=== PATIENT | female | born 1935 | race Caucasian/White ===

== ENCOUNTER → 2018-01-12 09:07 | Outpatient (CLI) | payer OTHER, SELFPAY ==
[2018-01-12 10:21] LABS: Alanine Aminotransferase 26 IU/L (9-52); Albumin 4.4 g/dL (3.5-5.0); Albumin Globulin Ratio 1.5 (1.0-2.8); Alkaline Phosphatase 52 U/L (38-126); Aspartate Aminotransferase 25 IU/L (14-36); Bilirubin Total 0.7 mg/dL (0.2-1.3); Blood Urea Nitrogen 12 mg/dL (7-17); Calcium 9.7 mg/dL (8.4-10.2); Carbon Dioxide 30 mmol/L (22-32); Chloride 104 mmol/L (98-107); Cholesterol 215 mg/dL (140-199); Estimated Glomerular Filt Rate > 60.0 mL/min (>60); Glucose 99 mg/dL (80-110); HDL Cholesterol 80 mg/dL (40-60); HEMOLYSIS < 15 (0-50); LDL Cholesterol Calculated 109 mg/dL (<100); Potassium 4.3 mmol/L (3.4-5.1); Sodium 143 mmol/L (137-145); Total Protein 7.4 g/dL (6.3-8.2); Triglycerides 132 mg/dL (35-150)
== END ==
PROVIDERS: PCP Internal Medicine; Visit Provider Internal Medicine
DX: Z00.00 Encounter for general adult medical examination without abnormal findings (principal); I10 Essential (primary) hypertension; E78.5 Hyperlipidemia, unspecified; M85.851 Other specified disorders of bone density and structure, right thigh
CPT/HCPCS: 36415; 77080; 80053; 80061

== ENCOUNTER → 2018-06-13 15:21 | Outpatient (CLI) | payer OTHER, SELFPAY ==
--- NOTE | 2018-06-13 | DI.RAD.S_ITS ---
PROCEDURE: XR KNEE LT 1TO2V INDICATIONS: PAIN IN LT KNEE TECHNIQUE: 2 views of the knee were acquired. COMPARISON: None. FINDINGS: Bones: No fractures or dislocations. No suspicious bony lesions. There is mild to moderate lateral compartment joint space narrowing, and chondrocalcinosis is present at both the medial and lateral compartments (more prominent laterally). Soft tissues: No joint effusion. No suspicious soft tissue calcifications. 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 Dictated by: Anthony Velez M.D. on 06/13/2018 at 15:52 Approved by: Anthony Velez M.D. on 06/13/2018 at 15:52
== END ==
PROVIDERS: PCP Internal Medicine; Visit Provider Physician Assistant
DX: M25.562 Pain in left knee (principal); M11.262 Other chondrocalcinosis, left knee; M17.12 Unilateral primary osteoarthritis, left knee
CPT/HCPCS: 73560

== ENCOUNTER → 2019-06-28 18:30 | Outpatient (ROUT) | payer OTHER, SELFPAY ==
[2019-06-28 19:04] LABS: Alanine Aminotransferase 18 IU/L (<35); Aspartate Aminotransferase 26 IU/L (14-36); BUN Creatinine Ratio 17.5 (6-22); Blood Urea Nitrogen 14 mg/dL (7-17); Carbon Dioxide 30 mmol/L (22-32); Chloride 103 mmol/L (98-107); Cholesterol 216 mg/dL (140-199); Estimated Glomerular Filt Rate > 60.0 mL/min (>60); Glucose 98 mg/dL (80-110); HDL Cholesterol 72 mg/dL (40-60); HEMOLYSIS < 15 (0-50); LDL Cholesterol Calculated 118 mg/dL (<100); Sodium 142 mmol/L (137-145); Triglycerides 132 mg/dL (35-150)
== END ==
PROVIDERS: PCP Internal Medicine; Visit Provider Internal Medicine
DX: I10 Essential (primary) hypertension (principal); E78.5 Hyperlipidemia, unspecified
CPT/HCPCS: 80048; 80061; 84450; 84460

== ENCOUNTER 2019-07-21 10:02 | Emergency (ER) | payer MEDICARE, SELFPAY ==
[2019-07-21 10:05] VITALS: BP 148/69; PULSE 71; RESP 16; TEMP 36.6; O2SAT 100; BMI 22.8
--- NOTE | 2019-07-21 10:42 | DI.RAD.S_ITS ---
PROCEDURE: XR KNEE LT 1TO2V INDICATIONS: left knee swelling and pain TECHNIQUE: 2 views of the knee were acquired. COMPARISON: [facility], , XR KNEE LT 1TO2V, 06/13/2018, 15:26. FINDINGS: Bones: No fractures or dislocations. No suspicious bony lesions. Chondrocalcinosis. Mild medial compartment joint space loss. Soft tissues: Small joint effusion. No suspicious soft tissue calcifications. IMPRESSION: CPPD arthropathy. No evidence acute bony abnormality of the left knee. If clinical suspicion and/or symptoms persist, further assessment with repeat plain films, or advanced imaging (e.g., CT, MRI, or bone scan) may be helpful for further assessment. Dictated by: Blaise Rouse M.D. on 07/21/2019 at 11:23 Approved by: Blaise Rouse M.D. on 07/21/2019 at 11:24
--- NOTE | 2019-07-21 11:34 | ED_ITS ---
HPI - Extremity Injury (Lower) <ELVIA Brown - Last Filed: 07/21/19 17:28> General Chief Complaint: Extremity Injury, Lower Stated Complaint: L Knee Pain Time Seen by Provider: 07/21/19 11:06 Source: patient and EMS Mode of arrival: EMS Limitations: no limitations History of Present Illness HPI Narrative: The patient is an 84-year-old female nonsmoker with history of left meniscus injury who presents with a chief complaint of left knee pain. She states that she had an MRI over the summer, and found a meniscal tear. She states she has a history of chronic left knee pain. She had a period of slight decreased activity due to recent illness, and states that when she started moving around again, her left knee her worse than usual. She states that it hurts on the outside of her left knee only with motion or ambulation she denies any bruising, falls or injury, erythema. She denies any recent fevers. Related Data Previous Rx's Medication Instructions Recorded lidocaine 1 patch TOP DAILY PRN #15 each 07/21/19 prednisone 40 mg PO DAILY #10 tab 07/21/19 tramadol 50 mg PO Q6H PRN #7 tab 07/21/19 Allergies Allergy/AdvReac Type Severity Reaction Status Date / Time Sulfa (Sulfonamide Allergy Unknown Verified 07/21/19 12:04 Antibiotics) Review of Systems <ELVIA Brown - Last Filed: 07/21/19 17:28> Review of Systems Narrative: GENERAL: Denies chills, fatigue, malaise, fever, sweats. HEENT: Denies sinus pain, ear pain, sore throat, difficulty swallowing, dizziness. RESPIRATORY: Denies dyspnea, cough, wheezing, hemoptysis, sputum. CARDIOVASCULAR: Denies chest pain, palpitations, orthopnea, edema, GASTROINTESTINAL: Denies nausea, vomiting, abdominal pain, diarrhea, constipation, melena. : Denies dysuria, frequency, incontinence, hematuria, urinary retention. MUSCULOSKELETAL: See HPI SKIN: Denies rash, skin lesions, or other NEUROLOGIC: Denies weakness, headache, numbness, change in speech, confusion, seizures, incoordination. PSYCHIATRIC: No concerning psychosocial issues. 12 point review of systems is negative except for those stated above Patient History <ELVIA Brown - Last Filed: 07/21/19 17:28> Social History Smoking Status: Unknown if ever smoked Smoking Status: Unknown if ever smoked alcohol intake frequency: 0-2 drinks per day Substance Use Type: does not use Exam <ELVIA Brown - Last Filed: 07/21/19 17:28> Narrative Exam Narrative: GENERAL: This is a well-nourished, well-developed patient, in no acute distress HEAD: Atraumatic. Normocephalic. No temporal or scalp tenderness. EYES: Pupils equal round and reactive. Extraocular motions intact. No scleral icterus. No injection or drainage. ENT: Nose without bleeding, purulent drainage or septal hematoma. Throat without erythema, tonsillar hypertrophy or exudate. Uvula midline. Airway patent. NECK: Trachea midline. No JVD or lymphadenopathy. Supple, nontender, no meningeal signs. CARDIOVASCULAR: Regular rate and rhythm without murmurs, gallops, or rubs. RESPIRATORY: Clear to auscultation. Breath sounds equal bilaterally. No wheezes, rales, or rhonchi. No cough. No increased respiratory effort. No accessory muscle use. EXTREMITIES: General pain to palpation noted left knee. Able to flex and extend left knee though decreased range of motion. Positive pedal pulses bilaterally. BACK: Nontender without deformity or crepitance. No flank tenderness. NEURO: AOx3. SKIN: No erythema laceration abrasion noted left knee. No visual abnormality noted left knee. Initial Vital Signs Initial Vital Signs: Vital Signs Temperature 97.9 F 07/21/19 10:05 Pulse Rate 71 07/21/19 10:05 Respiratory Rate 16 07/21/19 10:05 Blood Pressure 148/69 H 07/21/19 10:05 Pulse Oximetry 100 07/21/19 10:05 <Yecenia Zapata DO - Last Filed: 07/21/19 18:56> Initial Vital Signs Initial Vital Signs: Vital Signs Temperature 97.9 F 07/21/19 10:05 Pulse Rate 71 07/21/19 10:05 Respiratory Rate 16 07/21/19 10:05 Blood Pressure 148/69 H 07/21/19 10:05 Pulse Oximetry 100 07/21/19 10:05 Course <KATH BrownBC - Last Filed: 07/21/19 17:28> Orders Ordered: ED Orders 07/21/19 10:42 XR knee LT 1to2V Stat Discontinued Medications Acetaminophen (Tylenol) 650 mg PO NOW ONE Stop: 07/21/19 11:20 Last Admin: 07/21/19 12:05 Dose: 650 mg Documented by: JIGNESH Lidocaine (Lidoderm) 1 each TOP NOW ONE Stop: 07/21/19 11:20 Last Admin: 07/21/19 12:05 Dose: 1 each Documented by: JIGNESH Prednisone (Deltasone) 40 mg PO NOW ONE Stop: 07/21/19 12:17 Last Admin: 07/21/19 12:36 Dose: 40 mg Documented by: JIGNESH Vital Signs Vital signs: Vital Signs - 8 hr 07/21/19 11:42 07/21/19 12:35 07/21/19 13:25 Pulse Rate 66 63 Respiratory Rate 16 Blood Pressure [Left Arm] 151/67 H 140/64 Pulse Oximetry 97 8 L 97 07/21/19 14:00 Pulse Rate 65 Respiratory Rate 16 Blood Pressure [Left Arm] 144/61 H Pulse Oximetry 97 <Yecenia Zapata DO - Last Filed: 07/21/19 18:56> Orders Ordered: ED Orders 07/21/19 10:42 XR knee LT 1to2V Stat Discontinued Medications Acetaminophen (Tylenol) 650 mg PO NOW ONE Stop: 07/21/19 11:20 Last Admin: 07/21/19 12:05 Dose: 650 mg Documented by: JIGNESH Lidocaine (Lidoderm) 1 each TOP NOW ONE Stop: 07/21/19 11:20 Last Admin: 07/21/19 12:05 Dose: 1 each Documented by: JIGNESH Prednisone (Deltasone) 40 mg PO NOW ONE Stop: 07/21/19 12:17 Last Admin: 07/21/19 12:36 Dose: 40 mg Documented by: JIGNESH Vital Signs Vital signs: Vital Signs - 8 hr 07/21/19 11:42 07/21/19 12:35 07/21/19 13:25 Pulse Rate 66 63 Respiratory Rate 16 Blood Pressure [Left Arm] 151/67 H 140/64 Pulse Oximetry 97 8 L 97 07/21/19 14:00 Pulse Rate 65 Respiratory Rate 16 Blood Pressure [Left Arm] 144/61 H Pulse Oximetry 97 [facility] - Extremity Injury (Lower) <CARRILLO Brown-BC - Last Filed: 07/21/19 17:28> Imaging Data Extremity x-ray #1: Radiologist's Impression: [address] [address] XRay Report Signed Patient: Alissa PereaR#: [id number] : 5Acct:[id number] Age/Sex: 84 / FDate of Service: 07/21/19 Loc: ED Accession Number: [id number] Procedure: XR knee LT 1to2V Ordering Provider: Yecenia Zapata D.O. PROCEDURE: XR KNEE LT 1TO2V INDICATIONS: left knee swelling and pain TECHNIQUE: 2 views of the knee were acquired. COMPARISON: [facility], , XR KNEE LT 1TO2V, 06/13/2018, 15:26. FINDINGS: Bones: No fractures or dislocations. No suspicious bony lesions. Chondrocalcinosis. Mild medial compartment joint space loss. Soft tissues: Small joint effusion. No suspicious soft tissue calcifications. IMPRESSION: CPPD arthropathy. No evidence acute bony abnormality of the left knee. If clinical suspicion and/or symptoms persist, further assessment with repeat plain films, or advanced imaging (e.g., CT, MRI, or bone scan) may be helpful for further assessment. Dictated by: Blaise Rouse M.D. on 07/21/2019 at 11:23 Approved by: Blaise Rouse M.D. on 07/21/2019 at 11:24 [facility] Narrative Medical decision making narrative: The patient is an 84-year-old female who presents with a chief complaint of left knee pain and swelling. She has a history of meniscus tear, has been seeing an orthopedist for this. She states her pain got worse a few days ago, but with no erythema fevers etcetera. She has no obvious signs of infection. She was given Tylenol, lidocaine patch in the emergency department. She is able to ambulate well with a walker. Her x- ray is concerning for CPPD arthropathy. Per up-to-date, 1st line of therapy is NSAIDs, which the patient states she does not tolerate. Also recommends steroids. She was started on prednisone. I did discuss small amount of tramadol to help her sleep. Discussed at length following up with primary care provider in the next few days, but she may benefit from orthopedic referral again. She has no signs of infection, no fever etcetera. I discussed at length the importance of coming back to the ER for any acute concerns. Patient is able to state understanding return precautions and follow-up care and has no questions or concerns upon discharge she is able to ambulate with a walker well in the emergency department. Discharge Plan Departure Patient Disposition: Home Clinical Impression: Acute knee pain Qualifiers: Laterality: left Qualified Code(s): M25.562 - Pain in left knee Discharge Date/Time: 07/21/19 14:52 Instructions: How to Choose and Use a Walker, How To Perform RICE (Rest, Ice, Compress, Elevate), DI for Knee Pain Activity Restrictions/Additional Instructions: As I discussed, your x-ray shows no acute fracture. This does not rule out a soft tissue injury such as a ligament or tendon injury. It is important that you follow up with primary care provider, especially if worsening or no improvement. There can be fractures that did not show up on initial x-ray. Your x-ray does show concern for calcium deposits in her joint. Thus we've placed you on a burst of steroids. It is important that you follow-up with primary care provider in the next few days I have given you a prescription of a narcotic for pain. I sent this prescription to [facility]. Be aware that this can be constipating and sedating. I encouraged taking with a stool softener, pushing fluids and fiber. Do not take and drive, operate heavy machinery, etc. Do not combine it with any other sedating substances such as alcohol. The combination of narcotics and alcohol and/or other sedatives can be lethal. Please be aware that we do not provide refills of controlled substances in the emergency department. Please follow up with her primary care provider. Please come back to emergency department for any acute concerns such as chest pain, shortness of breath, concern of heart attack or stroke Prescriptions: New tramadol 50 mg tablet 50 mg PO Q6H PRN (Reason: pain) Qty: 7 RF: 0 lidocaine 5 % adhesive patch,medicated 1 patch TOP DAILY PRN (Reason: pain) Qty: 15 RF: 0 prednisone 20 mg tablet 40 mg PO DAILY Qty: 10 RF: 0 Referrals: Lizett Hart MD [Primary Care Provider] -
[2019-07-21 11:42] VITALS: PULSE 66; O2SAT 97
[2019-07-21] MEDS: LIDOCAINE PATCH 1 EACH ADH..PATCH TOP (12:05)
[2019-07-21] MEDS: ACETAMINOPHEN 325 MG TABLET 650 MG PO (12:05)
[2019-07-21 12:35] VITALS: BP 151/67; O2SAT 8
[2019-07-21] MEDS: predniSONE 20 MG TABLET 40 MG PO (12:36)
[2019-07-21 13:25] VITALS: BP 140/64; PULSE 63; RESP 16; O2SAT 97
[2019-07-21 14:00] VITALS: BP 144/61; PULSE 65; RESP 16; O2SAT 97
== END 2019-07-21 14:52 | disposition home or self-care (01) ==
PROVIDERS: Emergency Provider Nurse Practitioner Family; PCP Internal Medicine
DX: M25.562 Pain in left knee (principal)
CPT/HCPCS: 73560; 99283; 99284

== ENCOUNTER → 2019-07-25 14:34 | Outpatient (ROUT) | payer MEDICARE, SELFPAY ==
[2019-07-25 15:38] LABS: Uric Acid 6.2 mg/dL (2.5-6.2)
== END ==
PROVIDERS: PCP Internal Medicine; Visit Provider Internal Medicine
DX: M25.562 Pain in left knee (principal)
CPT/HCPCS: 84550

== ENCOUNTER → 2019-09-15 11:58 | Outpatient (CLI) | payer MEDICARE, SELFPAY ==
[2019-09-15 12:49] LABS: Appearance Urine UA CLEAR; Bilirubin Urine UA NEGATIVE (NEGATIVE); Color Urine UA YELLOW; Glucose Urine UA NEGATIVE (Negative); Ketones Urine UA NEGATIVE (NEGATIVE); Leukocyte Esterase Urine UA 1+ (NEGATIVE); Nitrite Urine UA NEGATIVE (Negative); Occult Blood Urine UA TRACE-LYSED (Negative); Protein Urine UA NEGATIVE (Negative); Specific Gravity Urine UA 1.015 (1.000-1.035); Urobilinogen Urine UA 0.2 E.U./dL (0.2)
[2019-09-15 12:50] LABS: pH Urine UA 6.5 (4.5-8.0)
[2019-09-15 12:56] LABS: Hemoglobin A1C% w Est Avg Glu 5.4 % (4.0-6.0); RBC Urine 1-5/HPF (0-5/HPF); Squamous Epithelial Cell Urine 0-1 /HPF (0-5/HPF); WBC Urine 1-5/HPF (0-5/HPF)
[2019-09-15 12:57] LABS: Bacteria Urine Occasional (0-1); Culture Indicated Urine Specimen Cultured
[2019-09-15 13:14] LABS: BUN Creatinine Ratio 24.4 (6-22); Blood Urea Nitrogen 22 mg/dL (7-17); Calcium 10.4 mg/dL (8.4-10.2); Carbon Dioxide 27 mmol/L (22-32); Chloride 105 mmol/L (98-107); Estimated Glomerular Filt Rate 59.7 mL/min (>60); Glucose 112 mg/dL (80-110); HEMOLYSIS < 15 (0-50); Potassium 4.2 mmol/L (3.4-5.1); Sodium 141 mmol/L (137-145)
[2019-09-15 13:21] LABS: Add Manual Diff / Slide Review NO; Basophils Absolute Auto 100 /uL (0-100); Basophils Percent Auto 1.3 % (0-2); Eosinophils Absolute Auto 200 /uL (0-450); Eosinophils Percent Auto 4.1 % (2-4); Hematocrit 36.3 % (36-46); Hemoglobin 12.3 g/dL (12.0-16.0); Lymphocytes Absolute Auto 1500 /uL (1100-4500); Lymphocytes Percent Auto 32.4 % (25-40); Mean Corpuscular HGB Conc 33.8 % (30-36); Mean Corpuscular Hemoglobin 31.1 PG (26-34); Mean Corpuscular Volume 92.2 fL (80-100); Monocytes Absolute Auto 400 /uL (0-900); Monocytes Percent Auto 7.6 % (3-14); Neutrophils Absolute Auto 2500 /uL (1500-7000); Neutrophils Percent Auto 54.6 % (50-75); Platelet Count 204 X10^3/uL (150-400); Red Blood Cell Count 3.94 X10^6/uL (4.0-5.2); Red Cell Distribution Width 13.6 % (11.6-14.8); White Blood Cell Count 4.7 X10^3/uL (4.5-11.0)
== END ==
PROVIDERS: PCP Internal Medicine; Referring Provider Orthopaedic Surgery; Visit Provider Orthopaedic Surgery
DX: Z01.818 Encounter for other preprocedural examination (principal); Z01.812 Encounter for preprocedural laboratory examination; R73.9 Hyperglycemia, unspecified; N39.0 Urinary tract infection, site not specified
CPT/HCPCS: 36415; 80048; 81001; 83036; 85025; 87086; 93005

== ENCOUNTER → 2020-07-08 19:31 | Outpatient (ROUT) | payer MEDICARE, SELFPAY | PROVIDERS: PCP Internal Medicine; Visit Provider Internal Medicine | DX: R39.9 Unspecified symptoms and signs involving the genitourinary system (principal); N39.0 Urinary tract infection, site not specified | CPT/HCPCS: 87077; 87086; 87186 ==

== ENCOUNTER → 2020-09-09 09:11 | Outpatient (CLI) | payer MEDICARE, SELFPAY ==
--- NOTE | 2020-09-09 | DI.MRI.S_ITS ---
PROCEDURE: MR STROKE Pre- and post-contrast brain MRI, non-contrast brain MR angiogram, pre- and postcontrast neck MR angiogram INDICATIONS: Unspecified visual disturbance TECHNIQUE: Brain: Noncontrast axial T1 spin echo, axial T2 fast spin echo, sagittal and axial FLAIR, coronal T2 fast spin echo, axial gradient echo, axial diffusion and ADC through the brain. After the administration of contrast, axial 3D VIBE of the cranial vasculature and brain. Brain MRA: Non-contrast 3-D time of flight MR angiogram, with multiple juaggki-vlstsokgz-ixkwlauyne (MIP) reformats performed. Neck MRA: Axial and sagittal TruFISP through the neck. Coronal dynamic MR angiogram during administration of contrast in the arterial and venous phases, with 3-dimenstional ctmxahr-pkxdtyfmi-djwfhbidbv (MIP) reformats constructed from subtraction images. COMPARISON: [facility], , STROKE PROTOCOL, 05/14/2014, 15:35. FINDINGS: Image quality: Excellent. BRAIN: CSF spaces: Ventricles are normal in size and shape. Basal cisterns are patent. No extra-axial fluid collections. Brain: No intracranial bleeds or mass effects. Danielle-white matter interface is normal. Remote appearing occipital lobe infarctions are seen, with volume loss and encephalomalacia. Brain parenchymal volume loss is seen. Chronic small vessel ischemic changes are seen. Diffusion weighted images show no acute ischemic insults. Brainstem appears normal. Normal intravascular flow voids are present. No abnormal intracranial enhancement. Skull and face: Calvarial marrow signal is normal. Orbits appear normal. Note is made of bilateral lens replacements. Sinuses: Sinuses and mastoids are clear. BRAIN MR ANGIOGRAM: Anterior circulation: Intracranial internal carotid arteries are normal in size and enhancement. The flow within the paired anterior cerebral arteries is normal and symmetric. The flow within the middle cerebral arteries is normal and symmetric. The anterior communicating artery is seen. No stenoses, occlusions, or aneurysms. Posterior circulation: The distal left vertebral artery is normal. The distal right vertebral artery is not well seen. There is a patent basilar artery, which is ectatic and demonstrates mass effect upon the left aspect of the brainstem, as on series 29, image 34. The flow within the posterior cerebral arteries is normal and symmetric. No stenoses, occlusions, or aneurysms. NECK MR ANGIOGRAM: Carotids: Great vessels demonstrate a conventional anatomy as they arise from the aortic arch. The origins of the common carotid arteries appear patent. The calibers and courses of both common carotid arteries are normal. The bifurcation regions demonstrate atherosclerotic irregularity, yet without a hemodynamically significant stenosis The internal carotid arteries demonstrate normal course and caliber. Posterior circulation: There is subtotal stenosis seen involving the origin of the right vertebral artery. There is poor flow seen within the right vertebral artery. The left vertebral artery appears normal. Miscellaneous: Subclavian arteries appear patent. Pre-contrast images through the neck show no soft tissue abnormalities. IMPRESSION: BRAIN MRI: Remote bilateral occipital lobe infarctions. No findings of acute or subacute infarction can be seen. Note is made of age-appropriate brain parenchymal volume loss and chronic small vessel ischemic changes. No masses or abnormal enhancement can be seen. 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 NECK MR ANGIOGRAM: There is subtotal stenosis seen involving the origin of the right vertebral artery. Normal left vertebral artery. No hemodynamically significant carotid stenosis can be seen. Dictated by: Elias Luna M.D. on 09/09/2020 at 10:24 Approved by: Elias Luna M.D. on 09/09/2020 at 10:29
== END ==
PROVIDERS: PCP Internal Medicine; Referring Provider Internal Medicine; Visit Provider Internal Medicine
DX: I65.01 Occlusion and stenosis of right vertebral artery; H53.8 Other visual disturbances; Z86.73 Personal history of transient ischemic attack (TIA), and cerebral infarction without residual deficits
CPT/HCPCS: 70548; 70553; A9579

== ENCOUNTER → 2020-11-28 12:12 | Outpatient (CLI) | payer MEDICARE, SELFPAY ==
--- NOTE | 2020-11-28 | DI.RAD.S_ITS ---
PROCEDURE: XR HIP W PEL IF DONE LT 2V INDICATIONS: LEFT HIP PAIN TECHNIQUE: AP pelvis and lateral view of the left hip acquired. COMPARISON: None. FINDINGS: Bones: Patient is status post left hip arthroplasty, with hardware components in expected positions. Left hip alignment is anatomic. No gross hardware loosening or failure. No acute fracture or dislocation. Soft tissues: No suspicious soft tissue densities. IMPRESSION: Prior left total hip arthroplasty with anatomic left hip alignment. No hip fracture or dislocation. No gross hardware complication. Dictated by: Michael Delacruz M.D. on 11/28/2020 at 14:33 Approved by: Michael Delacruz M.D. on 11/28/2020 at 14:34
== END ==
PROVIDERS: PCP Internal Medicine; Referring Provider Internal Medicine; Visit Provider Internal Medicine
DX: M25.552 Pain in left hip (principal); Z96.642 Presence of left artificial hip joint
CPT/HCPCS: 73502

== ENCOUNTER → 2020-12-14 14:12 | Outpatient (CLI) | payer MEDICARE, SELFPAY ==
--- NOTE | 2020-12-14 | DI.MRI.S_ITS ---
PROCEDURE: MR LUMBAR SPINE WO CON INDICATIONS: Radiculopathy, lumbar region TECHNIQUE: Noncontrast sagittal T1 spin echo and T2 fast echo, sagittal STIR, axial T1 and T2 fast spin echo through the lumbar spine. In cases with scoliosis, additional coronal T2 fast spin echo may be performed. COMPARISON: [facility], CR, XR HIP W PEL IF DONE LT 2V, 11/28/2020, 12:31. FINDINGS: Image quality: Excellent. Alignment and Curvature: Mild levoconvex scoliotic curvature is noted. Bone Marrow: Marrow is of normal overall signal. No acute vertebral body compression fractures. There is abnormally increased STIR signal seen within the sacrum, particularly at the S1-S2 level and within the sacral ala on both sides, left worse than right. Spinal Cord: Conus medullaris terminates at the L1 level. Visualized cord demonstrates normal signal and size. Paraspinous Soft Tissues: No paravertebral masses. T12-L1: No significant abnormality is seen. There is an apparent perineural cyst seen within the right neural foramen, as on series 7, image 7. L1-L2: The disc height is well-preserved. Loss of disc signal is seen at this level. A likely subacute Schmorl's node can be seen along the inferior aspect the L1 vertebral body, as on series 7, image 11. Mild generalized disc bulge is seen. Mild facet joint hypertrophy is seen. There is moderate right-sided and no significant left-sided neural foraminal narrowing seen. Mild central canal narrowing is seen. L2-L3: At least moderate loss of disc height and disc signal can be seen. Moderate to prominent disc bulge is seen, which is eccentric to the right. Mild to moderate facet hypertrophy is seen. There is moderate to severe right-sided and at least moderate left-sided neural foraminal narrowing seen. There is a mild degree compression seen upon the exiting nerve roots, right worse than left. At least moderate central canal narrowing is seen at this level. L3-L4: Mild loss of disc height is seen. Loss of disc signal is seen. Moderate generalized disc bulge is seen, with a central disc protrusion. Mild to moderate facet hypertrophy is seen. Associated hypertrophy of the ligamentum flavum can be seen. At least moderate bilateral neural foraminal narrowing can be seen. Moderate central canal narrowing is seen. L4-L5: At least moderate loss of disc height and disc signal is seen. Reactive marrow endplate changes are seen, which are hyperintense on T1-weighted and T2-weighted imaging and most consistent with fatty metaplasia (Modic type II changes). At least moderate disc bulge is seen, which is eccentric to the left. There is at least moderate facet hypertrophy seen at this level. There is moderate right-sided and at least moderate left-sided neural foraminal narrowing. There is a degree of compression seen upon the exiting left L4 nerve root. At least moderate central canal narrowing is seen. L5-S1: The disc height and disc signal are relatively well preserved. Mild generalized disc bulge is seen. At least moderate facet hypertrophy is seen. There is at least moderate bilateral neural foraminal narrowing seen, left worse than right. There is a degree of compression seen upon the exiting nerve roots. Moderate to severe central canal narrowing is seen at this level, which is exacerbated by prominent epidural fat. IMPRESSION: Multiple levels of lumbar spine degenerative change are seen. Apparent sacral insufficiency fractures can be seen. Please consider additional imaging with nuclear medicine bone scan or CT. Dictated by: Elias Luna M.D. on 12/17/2020 at 8:19 Approved by: Elias Luna M.D. on 12/17/2020 at 8:27
== END ==
PROVIDERS: PCP Internal Medicine; Referring Provider Physician Assistant Medical; Visit Provider Physician Assistant Medical
DX: M54.16 Radiculopathy, lumbar region (principal)
CPT/HCPCS: 72148

== ENCOUNTER → 2021-01-07 12:37 | Outpatient (CLI) | payer MEDICARE, SELFPAY ==
--- NOTE | 2021-01-07 | DI.NM.S_ITS ---
PROCEDURE: NM BONE SCAN WHOLE BODY RADIOPHARMACEUTICAL: 20.2 mCi Tc-99m MDP IV. INDICATIONS: Pathological fracture TECHNIQUE: Delayed whole-body scintigrams were obtained approximately 3-4 hours after intravenous injection of radiotracer. Anterior and posterior views were acquired from vertex to feet. Additional left and right oblique views of the pelvis were obtained. COMPARISON: [facility], MR, MR LUMBAR SPINE WO CON, 12/14/2020, 14:21. FINDINGS: Intensity increased uptake in sacral ala and sacral body is present, consistent with insufficiency fracture. No lesions are identified in skull, sternum, clavicles, scapulae, and visualized shafts of the long bones. There is low level increased uptake in cervical, thoracic and lumbar spine with distribution indistinguishable from degenerative disc and facet disease; early metastasis to spine could be obscured by degenerative changes. There are foci of increased periarticular activity involving shoulders, sternoclavicular joints, elbows, wrists, hands, right hip, knees, ankles and feet, compatible with degenerative/arthritic changes. Note is made of left hip arthroplasty. IMPRESSION: 1. Sacral insufficiency fracture. 2. Degenerative changes in spine and multiple peripheral joints. Dictated by: Gregg Suh M.D. on 01/07/2021 at 16:57 Approved by: Gregg Suh M.D. on 01/07/2021 at 17:01
== END ==
PROVIDERS: PCP Internal Medicine; Referring Provider Physical Medicine & Rehabilitation; Visit Provider Physical Medicine & Rehabilitation
DX: M84.48XA Pathological fracture, other site, initial encounter for fracture (principal); M47.9 Spondylosis, unspecified; Z96.642 Presence of left artificial hip joint
CPT/HCPCS: 78306; A9503

== ENCOUNTER → 2021-04-23 10:09 | Outpatient (CLI) | payer MEDICARE, SELFPAY ==
--- NOTE | 2021-04-23 | DI.RAD.S_ITS ---
PROCEDURE: XR DEXA AXIAL SKELETON INDICATIONS: Asymptomatic menopausal state COMPARISON: [facility], CR, XR DEXA AXIAL SKELETON, 01/12/2018, 10:52. FINDINGS: This blank DEXA report has been sent in error by the PACS system. The correct and complete report will be forthcoming in 1-2 days. Thank you for your patience and understanding. Dictated by: Dinorah Perry MD, PhD on 04/24/2021 at 10:03 Approved by: Dinorah Perry MD, PhD on 04/24/2021 at 10:03
== END ==
PROVIDERS: PCP Internal Medicine; Referring Provider Internal Medicine; Visit Provider Internal Medicine
DX: M85.80 Other specified disorders of bone density and structure, unspecified site (principal); Z78.0 Asymptomatic menopausal state; M85.88 Other specified disorders of bone density and structure, other site; M85.851 Other specified disorders of bone density and structure, right thigh; M81.0 Age-related osteoporosis without current pathological fracture
CPT/HCPCS: 77080; 77081

== ENCOUNTER → 2022-03-18 13:24 | Outpatient (CLI) | payer MEDICARE, SELFPAY ==
--- NOTE | 2022-03-18 13:26 | DI.ECHO.S_ITS ---
[facility] +---------+ : : [address] : [place] : : : : [id number] : : : : Phone: [phone]---------+ Echocardiogram Report + + :Name: PATRICIA LEZAMA Study Date: 03/18/2022 Height: 66 in : :[facility] ReadingLocation: Weight: 147 lb : : Gender: Female BSA: 1.8 m2 : :: 1935 Age: 86 yrs BP: 158/72 mmHg: :Reason For Study: DYSPNEA ON EXERTION : :Ordering Physician: PAMELA VAN Performed By: Monalisa Schrader : :Referring: PAMELA VAN : + + Interpretation Summary Normal sinus rhythm. Normal LV size, wall thickness, wall motion and left ventricular systolic function. Ejection fraction is 60-65%. Normal diastolic function. Severe LA enlargement; otherwise normal chamber sizes. Moderate central tricuspid regurgitation. Otherwise there are no significant valvular abnormalities. Estimated PA systolic pressure is 41 mm Hg assuming RA pressure of 3 mm Hg. Compared to prior study 11/08/2014 no significant changes have occurred. Procedure: A two-dimensional transthoracic echocardiogram with color flow and Doppler was performed. The study quality was technically adequate. Comparison is made with the echocardiogram of 11/08/2014. The patient was in sinus rhythm with heart rates between 59-65 bpm during the exam. Left Ventricle: The left ventricle is normal in size and wall thickness. The ejection fraction is estimated to be 60-65%. Right Ventricle: The right ventricle is at the upper limits of normal in size. The right ventricular systolic function is normal. Atria: The left atrium is severely dilated. The right atrium is normal in size. There is no Doppler evidence for an interatrial shunt. Mitral Valve: The mitral valve leaflets appear borderline thickened, but open well. There is mild mitral annular calcification. There is mild mitral regurgitation. Aortic Valve: The aortic valve is trileaflet. The aortic valve opens well. There is no aortic valve stenosis. There is trace aortic regurgitation. Tricuspid Valve: The tricuspid valve leaflets are thin and pliable. There is moderate tricuspid regurgitation. The right ventricular systolic pressure is estimated to be at least 40 mmHg based on an estimated right atrial pressure of 3 mm Hg. Pulmonic Valve: The pulmonic valve leaflets are thin and pliable; valve motion is normal. There is mild pulmonic regurgitation. Great Vessels: The aortic root is normal size. The dimensions of the ascending aorta are normal. The IVC is of normal diameter and collapses greater than 50% with a sniff. This suggests a low right atrial pressure of 3 mm Hg. Pericardium/ Pleura There is no pericardial effusion. There is no pleural effusion. MMode/2D Measurements & Calculations LVIDd: 4.1 cm LVOT diam: 2.0 cm LVIDs: 2.8 cm Ao root diam: 3.3 cm FS: 31.0 % asc Aorta Diam: 3.4 cm EPSS: 0.64 cm Ao Arch Diam (Prox Trans): 2.5 cm IVSd: 0.94 cm LVPWd: 1.2 cm LV giordano. diameter/BSA (cm/m^2): 2.3 LV sys. diameter/BSA (cm/m^2): 1.6 LA A2 area: 28.6 cm2 RA long axis: 5.4 cm LA A4 area: 23.0 cm2 RA area: 19.8 cm2 LA length (vol): 5.6 cm RA vol: 61.6 ml LA vol: 100.2 ml RA : 35.1 ml/m2 LA vol index: 57.1 ml/m2 IVC diam: 1.6 cm RVD1 (basal): 4.0 cm RVD2 (mid): 3.4 cm TAPSE: 2.1 cm Doppler Measurements & Calculations Ao V2 max: 131.4 cm/sec LVOT Max Tye: 105.0 cm/sec Ao V2 mean: 92.4 cm/sec LV V1 max P.4 mmHg Ao max P.9 mmHg LV V1 VTI: 22.8 cm Ao mean P.9 mmHg DELORES(I,D): 2.3 cm2 Ao V2 VTI: 29.2 cm DELORES(V,D): 2.4 cm2 sev ratio: 0.78 DELORES indexed to BSA (cm^2/m^2): 1.3 MV E max tye: 96.1 cm/sec TR max tye: 301.9 cm/sec MV A max tye: 82.6 cm/sec TR max P.5 mmHg MV E/A: 1.2 PA V2 max: 82.7 cm/sec Med Peak E' Tye: 6.3 cm/sec PA V2 mean: 53.8 cm/sec E/E' med: 15.1 PA mean P.4 mmHg Lat Peak E' Tye: 10.6 cm/sec PA pr(Accel): 31.0 mmHg E/E' lat: 9.1 E/e' average: 12.1 MV dec time: 0.17 sec [facility] 68.4 ml Electronically signed by: Lety Washburn M.D. on [place] Physician:03/18/2022 08:53 PM
== END ==
PROVIDERS: PCP Internal Medicine; Referring Provider Internal Medicine; Visit Provider Internal Medicine
DX: I08.1 Rheumatic disorders of both mitral and tricuspid valves (principal); R06.00 Dyspnea, unspecified
CPT/HCPCS: 93306

== ENCOUNTER 2022-06-25 05:36 | Emergency (ER) | payer MEDICARE, SELFPAY ==
--- NOTE | 2022-06-25 05:51 | ED.GENADULT ---
HPI - General Adult <Jennyfer Kidd MD - Last Filed: 07/10/22 18:07> General Chief complaint: Nausea/Vomiting/Diarrhea Stated complaint: N/V/D Time Seen by Provider: 06/25/22 05:44 History of Present Illness HPI narrative: 86-year-old woman with minimal medical history was in her usual state of excellent health today when to bed and around midnight woke up feeling nauseated and began to have profuse vomiting and diarrhea. She became increasingly weak to the point that she had to crawl across the floor to get to the phone and is even having difficulty sitting up due to overall weakness. She describes no recent fevers, cough, chills or headaches. At time of arrival she complains of some mild nausea but notes that most of it has been addressed by the Zofran given by medics. She is had no specific abdominal pain and did not notice any blood in either the emesis or the stool. Related Data Previous Rx's Medication Instructions Recorded lidocaine 5 % topical patch 1 patch topical DAILY PRN pain #15 07/21/19 ea prednisone 20 mg tablet 40 mg PO DAILY #10 tabs 07/21/19 tramadol 50 mg tablet 50 mg PO Q6H PRN pain #7 tabs 07/21/19 Allergies Allergy/AdvReac Type Severity Reaction Status Date / Time Sulfa (Sulfonamide Allergy Unknown Verified 07/21/19 12:04 Antibiotics) Review of Systems <Jennyfer Kidd MD - Last Filed: 07/10/22 18:07> Review of Systems Narrative: Remainder of complete review of systems is otherwise unremarkable except for that included in the HPI. Patient History <Jennyfer Kidd MD - Last Filed: 07/10/22 18:07> Social History Smoking Status: Unknown if ever smoked Smoking Status: Unknown if ever smoked alcohol intake frequency: 0-2 drinks per day Substance Use Type: does not use Exam <Jennyfer Kidd MD - Last Filed: 07/10/22 18:07> Initial Vital Signs Initial Vital Signs: Vital Signs Temperature 97.8 F 06/25/22 06:01 Pulse Rate 67 06/25/22 06:01 Respiratory Rate 26 H 06/25/22 06:01 Blood Pressure 125/58 L 06/25/22 06:01 Pulse Oximetry 98 06/25/22 06:01 Oxygen Delivery Method 06/25/22 06:01 General: Healthy appearing, in no acute distress. Able to give a complete and coherent history. Well-nourished well-developed HEENT: Moist mucous membranes, normal sclera with reactive pupils, Neck: No JVD, supple Respiratory: Lungs are clear to auscultation, no wheezing no rales no rhonchi. Full and symmetrical air movement Cardiac: Regular rate and rhythm no murmurs no bruits Abdomen: Soft, slightly distended but nontender, hyperactive bowel tones, no flank pain Skin: Pale but Warm and dry, no rashes Neurologic: Globally weak but Grossly neurologically intact with no obvious asymmetries or abnormalities Extremities: No trauma, well perfused Psych: Cooperative, appropriate insight and affect <Jordan Castro MD - Last Filed: 06/25/22 12:58> Initial Vital Signs Initial Vital Signs: Vital Signs Temperature 97.8 F 06/25/22 06:01 Pulse Rate 67 06/25/22 06:01 Respiratory Rate 26 H 06/25/22 06:01 Blood Pressure 125/58 L 06/25/22 06:01 Pulse Oximetry 98 06/25/22 06:01 Oxygen Delivery Method 06/25/22 06:01 Course <Jennyfer Kidd MD - Last Filed: 07/10/22 18:07> Orders Ordered: Discontinued Medications Sodium Chloride (Normal Saline 0.9%) 1,000 mls @ 1,000 mls/hr IV BOLUS ONE Stop: 06/25/22 06:43 Last Admin: 06/25/22 08:46 Dose: Not Given Documented By: BRIGIDA Vital Signs Vital signs: Vital Signs - 8 hr 06/25/22 06:01 06/25/22 10:58 Temperature 97.8 F 98.5 F Pulse Rate 67 72 Respiratory Rate 26 H Blood Pressure 125/58 L 135/60 Pulse Oximetry 98 98 Oxygen Delivery Method Room Air Room Air <Jordan Castro MD - Last Filed: 06/25/22 12:58> Course Course Narrative: No new issues during course of stay Orders Ordered: Discontinued Medications Sodium Chloride (Normal Saline 0.9%) 1,000 mls @ 1,000 mls/hr IV BOLUS ONE Stop: 06/25/22 06:43 Last Admin: 06/25/22 08:46 Dose: Not Given Documented By: BRIGIDA Reevaluation(s) Reevaluation #1: Updated patient results so far. Platelets incidental finding. Denies any bloody stools or black stools. Patient agrees with CT scan imaging and GI panel this time. Time: 08:47 Reevaluation #2: Spoke with patient results of CT imaging as well as GI panel and platelets level. Spoke with her my discussion with infectious disease and patient is feeling better and desires discharge home and will follow up with primary care for repeat CBC/platelet count. She understands it is supportive care at this time for this E coli infection. She thinks she may have gotten it from some bad food some friends prepared for her a dinner. Diarrhea has resolved while here. She desires discharge home. Time: 12:19 Consultations Consultation #1: Spoke with [facility], dr ryna Cash, platelets likely not related to the E coli. Patient symptoms are improved. Patient can be discharged home. Managed by supportive care and hydration. Can follow up with family doctor regarding platelet changes. Time: 12:19 Vital Signs Vital signs: Vital Signs - 8 hr 06/25/22 06:01 06/25/22 10:58 Temperature 97.8 F 98.5 F Pulse Rate 67 72 Respiratory Rate 26 H Blood Pressure 125/58 L 135/60 Pulse Oximetry 98 98 Oxygen Delivery Method Room Air Room Air Medical Decision Making <Jennyfer Kidd MD - Last Filed: 07/10/22 18:07> Lab Data Result diagrams: 06/25/22 06:37 06/25/22 06:37 Labs: Lab Results 06/25/22 06/25/22 06/25/22 Range/Units 05:43 06:37 06:37 WBC 5.7 (4.5-11.0) X10^3/uL RBC 3.61 L (4.0-5.2) X10^6/uL Hgb 12.4 (12.0-16.0) g/dL Hct 35.1 L (36-46) % MCV 97.2 (80-100) fL MCH 34.5 H (26-34) PG MCHC 35.5 (30-36) % RDW 13.3 (11.6-14.8) % Plt Count 76 L (150-400) X10^3/uL Neut % (Auto) 88.1 H (50-75) % Lymph % (Auto) 4.2 L (25-40) % [place] % (Auto) 7.1 (3-14) % Eos % (Auto) 0.4 L (2-4) % Baso % (Auto) 0.2 (0-2) % Neut # (Auto) 5000 (3477-4431) /uL Lymph # (Auto) 200 L (9342-8886) /uL [place] # (Auto) 400 (0-900) /uL Eos # (Auto) 0 (0-450) /uL Baso # (Auto) 0 (0-100) /uL Sodium 140 (137-145) mmol/L Potassium 3.7 (3.4-5.1) mmol/L Chloride 109 H (98-107) mmol/L Carbon Dioxide 22 (22-32) mmol/L BUN 23 H (7-17) mg/dL Creatinine 0.82 (0.52-1.04) mg/dL Estimated GFR > 60 (>60) mL/min BUN/Creatinine Ratio 28.0 H (6-22) Glucose 114 H (80-110) mg/dL Calcium 9.0 (8.4-10.2) mg/dL Magnesium 1.8 (1.6-2.3) mg/dL Total Bilirubin 0.4 (0.2-1.3) mg/dL AST 30 (14-36) IU/L ALT 24 (<35) IU/L Alkaline Phosphatase 35 L (38-126) U/L Total Protein 7.0 (6.3-8.2) g/dL Albumin 4.2 (3.5-5.0) g/dL Globulin 2.8 (1.7-4.1) g/dL Albumin/Globulin Ratio 1.5 (1.0-2.8) Stl C. cayetanensis PCR (Not Detect) Stool Rotavirus (PCR) (Not Detect) Stool Adenovirus (PCR) (Not Detect) Stool Astrovirus (PCR) (Not Detect) Stool Cryptosporidium PCR (Not Detect) Stl E.coli Shiga Tox PCR (Not Detect) St Sh/Enteroin Ecoli PCR (Not Detect) Stool E coli O157 PCR Stl Enterotoxigenic E PCR (Not Detect) Stool EPEC (PCR) (Not Detect) Stl E. histolytica PCR (Not Detect) Stool Giardia Lamblia PCR (Not Detect) Stool Sapovirus (PCR) (Not Detect) Stl P. shigelloides PCR (Not Detect) St Y.enterocolitica PCR (Not Detect) Stool Vibrio (PCR) (Not Detect) Stl Vibrio cholerae PCR (Not Detect) Stl Enteroaggr Ecoli PCR (Not Detect) Stl Norovirus GI/GII PCR (Not Detect) Chlamy pneumoniae PCR Not detected (Not Detect) Adenovirus (PCR) Not detected (Not Detect) B. pertussis DNA (PCR) Not detected (Not Detecte) B.parapertussis DNA PCR Not detected (Not Detecte) Campylobacter (PCR) (Not Detect) C. difficile Tox (PCR) (Not Detect) Coronavirus OC43 (PCR) Not detected (Not Detect) Coronavirus HKU1 (PCR) Not detected (Not Detect) Coronavirus 229E (PCR) Not detected (Not Detect) SARS-CoV-2 (PCR) Not detected (Not Detecte) Coronavirus NL63 (PCR) Not detected (Not Detect) Human Metapneumovir PCR Not detected (Not Detect) Influenza Type A (PCR) Not detected (Not Detect) Influenza Type B (PCR) Not detected (Not Detect) M. pneumoniae (PCR) Not detected (Not Detect) Parainfluenza 1 (PCR) Not detected (Not Detect) Parainfluenza 2 (PCR) Not detected (Not Detect) Parainfluenza 3 (PCR) Not detected (Not Detect) Parainfluenza 4 (PCR) Not detected (Not Detect) RSV (PCR) Not detected (Not Detect) Entero/Rhino (PCR) Not detected (Not Detect) Salmonella (PCR) (Not Detect) 06/25/22 Range/Units 09:38 WBC (4.5-11.0) X10^3/uL RBC (4.0-5.2) X10^6/uL Hgb (12.0-16.0) g/dL Hct (36-46) % MCV (80-100) fL MCH (26-34) PG MCHC (30-36) % RDW (11.6-14.8) % Plt Count (150-400) X10^3/uL Neut % (Auto) (50-75) % Lymph % (Auto) (25-40) % [place] % (Auto) (3-14) % Eos % (Auto) (2-4) % Baso % (Auto) (0-2) % Neut # (Auto) (1909-1869) /uL Lymph # (Auto) (2949-5021) /uL [place] # (Auto) (0-900) /uL Eos # (Auto) (0-450) /uL Baso # (Auto) (0-100) /uL Sodium (137-145) mmol/L Potassium (3.4-5.1) mmol/L Chloride (98-107) mmol/L Carbon Dioxide (22-32) mmol/L BUN (7-17) mg/dL Creatinine (0.52-1.04) mg/dL Estimated GFR (>60) mL/min BUN/Creatinine Ratio (6-22) Glucose (80-110) mg/dL Calcium (8.4-10.2) mg/dL Magnesium (1.6-2.3) mg/dL Total Bilirubin (0.2-1.3) mg/dL AST (14-36) IU/L ALT (<35) IU/L Alkaline Phosphatase (38-126) U/L Total Protein (6.3-8.2) g/dL Albumin (3.5-5.0) g/dL Globulin (1.7-4.1) g/dL Albumin/Globulin Ratio (1.0-2.8) Stl C. cayetanensis PCR Not detected (Not Detect) Stool Rotavirus (PCR) Not detected (Not Detect) Stool Adenovirus (PCR) Not detected (Not Detect) Stool Astrovirus (PCR) Not detected (Not Detect) Stool Cryptosporidium PCR Not detected (Not Detect) Stl E.coli Shiga Tox PCR Not detected (Not Detect) St Sh/Enteroin Ecoli PCR Not detected (Not Detect) Stool E coli O157 PCR TNP Stl Enterotoxigenic E PCR Not detected (Not Detect) Stool EPEC (PCR) Detected H (Not Detect) Stl E. histolytica PCR Not detected (Not Detect) Stool Giardia Lamblia PCR Not detected (Not Detect) Stool Sapovirus (PCR) Not detected (Not Detect) Stl P. shigelloides PCR Not detected (Not Detect) St Y.enterocolitica PCR Not detected (Not Detect) Stool Vibrio (PCR) Not detected (Not Detect) Stl Vibrio cholerae PCR Not detected (Not Detect) Stl Enteroaggr Ecoli PCR Not detected (Not Detect) Stl Norovirus GI/GII PCR Not detected (Not Detect) Chlamy pneumoniae PCR (Not Detect) Adenovirus (PCR) (Not Detect) B. pertussis DNA (PCR) (Not Detecte) B.parapertussis DNA PCR (Not Detecte) Campylobacter (PCR) Not detected (Not Detect) C. difficile Tox (PCR) Not detected (Not Detect) Coronavirus OC43 (PCR) (Not Detect) Coronavirus HKU1 (PCR) (Not Detect) Coronavirus 229E (PCR) (Not Detect) SARS-CoV-2 (PCR) (Not Detecte) Coronavirus NL63 (PCR) (Not Detect) Human Metapneumovir PCR (Not Detect) Influenza Type A (PCR) (Not Detect) Influenza Type B (PCR) (Not Detect) M. pneumoniae (PCR) (Not Detect) Parainfluenza 1 (PCR) (Not Detect) Parainfluenza 2 (PCR) (Not Detect) Parainfluenza 3 (PCR) (Not Detect) Parainfluenza 4 (PCR) (Not Detect) RSV (PCR) (Not Detect) Entero/Rhino (PCR) (Not Detect) Salmonella (PCR) Not detected (Not Detect) <Jordan Castro MD - Last Filed: 06/25/22 12:58> Differential Diagnosis Differential Diagnosis: C diff/viral infection/colitis Lab Data Labs: Lab Results 06/25/22 06/25/22 06/25/22 Range/Units 05:43 06:37 06:37 WBC 5.7 (4.5-11.0) X10^3/uL RBC 3.61 L (4.0-5.2) X10^6/uL Hgb 12.4 (12.0-16.0) g/dL Hct 35.1 L (36-46) % MCV 97.2 (80-100) fL MCH 34.5 H (26-34) PG MCHC 35.5 (30-36) % RDW 13.3 (11.6-14.8) % Plt Count 76 L (150-400) X10^3/uL Neut % (Auto) 88.1 H (50-75) % Lymph % (Auto) 4.2 L (25-40) % [place] % (Auto) 7.1 (3-14) % Eos % (Auto) 0.4 L (2-4) % Baso % (Auto) 0.2 (0-2) % Neut # (Auto) 5000 (9105-7766) /uL Lymph # (Auto) 200 L (1384-9786) /uL [place] # (Auto) 400 (0-900) /uL Eos # (Auto) 0 (0-450) /uL Baso # (Auto) 0 (0-100) /uL Sodium 140 (137-145) mmol/L Potassium 3.7 (3.4-5.1) mmol/L Chloride 109 H (98-107) mmol/L Carbon Dioxide 22 (22-32) mmol/L BUN 23 H (7-17) mg/dL Creatinine 0.82 (0.52-1.04) mg/dL Estimated GFR > 60 (>60) mL/min BUN/Creatinine Ratio 28.0 H (6-22) Glucose 114 H (80-110) mg/dL Calcium 9.0 (8.4-10.2) mg/dL Magnesium 1.8 (1.6-2.3) mg/dL Total Bilirubin 0.4 (0.2-1.3) mg/dL AST 30 (14-36) IU/L ALT 24 (<35) IU/L Alkaline Phosphatase 35 L (38-126) U/L Total Protein 7.0 (6.3-8.2) g/dL Albumin 4.2 (3.5-5.0) g/dL Globulin 2.8 (1.7-4.1) g/dL Albumin/Globulin Ratio 1.5 (1.0-2.8) Stl C. cayetanensis PCR (Not Detect) Stool Rotavirus (PCR) (Not Detect) Stool Adenovirus (PCR) (Not Detect) Stool Astrovirus (PCR) (Not Detect) Stool Cryptosporidium PCR (Not Detect) Stl E.coli Shiga Tox PCR (Not Detect) St Sh/Enteroin Ecoli PCR (Not Detect) Stool E coli O157 PCR Stl Enterotoxigenic E PCR (Not Detect) Stool EPEC (PCR) (Not Detect) Stl E. histolytica PCR (Not Detect) Stool Giardia Lamblia PCR (Not Detect) Stool Sapovirus (PCR) (Not Detect) Stl P. shigelloides PCR (Not Detect) St Y.enterocolitica PCR (Not Detect) Stool Vibrio (PCR) (Not Detect) Stl Vibrio cholerae PCR (Not Detect) Stl Enteroaggr Ecoli PCR (Not Detect) Stl Norovirus GI/GII PCR (Not Detect) Chlamy pneumoniae PCR Not detected (Not Detect) Adenovirus (PCR) Not detected (Not Detect) B. pertussis DNA (PCR) Not detected (Not Detecte) B.parapertussis DNA PCR Not detected (Not Detecte) Campylobacter (PCR) (Not Detect) C. difficile Tox (PCR) (Not Detect) Coronavirus OC43 (PCR) Not detected (Not Detect) Coronavirus HKU1 (PCR) Not detected (Not Detect) Coronavirus 229E (PCR) Not detected (Not Detect) SARS-CoV-2 (PCR) Not detected (Not Detecte) Coronavirus NL63 (PCR) Not detected (Not Detect) Human Metapneumovir PCR Not detected (Not Detect) Influenza Type A (PCR) Not detected (Not Detect) Influenza Type B (PCR) Not detected (Not Detect) M. pneumoniae (PCR) Not detected (Not Detect) Parainfluenza 1 (PCR) Not detected (Not Detect) Parainfluenza 2 (PCR) Not detected (Not Detect) Parainfluenza 3 (PCR) Not detected (Not Detect) Parainfluenza 4 (PCR) Not detected (Not Detect) RSV (PCR) Not detected (Not Detect) Entero/Rhino (PCR) Not detected (Not Detect) Salmonella (PCR) (Not Detect) 06/25/22 Range/Units 09:38 WBC (4.5-11.0) X10^3/uL RBC (4.0-5.2) X10^6/uL Hgb (12.0-16.0) g/dL Hct (36-46) % MCV (80-100) fL MCH (26-34) PG MCHC (30-36) % RDW (11.6-14.8) % Plt Count (150-400) X10^3/uL Neut % (Auto) (50-75) % Lymph % (Auto) (25-40) % [place] % (Auto) (3-14) % Eos % (Auto) (2-4) % Baso % (Auto) (0-2) % Neut # (Auto) (6008-6282) /uL Lymph # (Auto) (2981-4228) /uL [place] # (Auto) (0-900) /uL Eos # (Auto) (0-450) /uL Baso # (Auto) (0-100) /uL Sodium (137-145) mmol/L Potassium (3.4-5.1) mmol/L Chloride (98-107) mmol/L Carbon Dioxide (22-32) mmol/L BUN (7-17) mg/dL Creatinine (0.52-1.04) mg/dL Estimated GFR (>60) mL/min BUN/Creatinine Ratio (6-22) Glucose (80-110) mg/dL Calcium (8.4-10.2) mg/dL Magnesium (1.6-2.3) mg/dL Total Bilirubin (0.2-1.3) mg/dL AST (14-36) IU/L ALT (<35) IU/L Alkaline Phosphatase (38-126) U/L Total Protein (6.3-8.2) g/dL Albumin (3.5-5.0) g/dL Globulin (1.7-4.1) g/dL Albumin/Globulin Ratio (1.0-2.8) Stl C. cayetanensis PCR Not detected (Not Detect) Stool Rotavirus (PCR) Not detected (Not Detect) Stool Adenovirus (PCR) Not detected (Not Detect) Stool Astrovirus (PCR) Not detected (Not Detect) Stool Cryptosporidium PCR Not detected (Not Detect) Stl E.coli Shiga Tox PCR Not detected (Not Detect) St Sh/Enteroin Ecoli PCR Not detected (Not Detect) Stool E coli O157 PCR TNP Stl Enterotoxigenic E PCR Not detected (Not Detect) Stool EPEC (PCR) Detected H (Not Detect) Stl E. histolytica PCR Not detected (Not Detect) Stool Giardia Lamblia PCR Not detected (Not Detect) Stool Sapovirus (PCR) Not detected (Not Detect) Stl P. shigelloides PCR Not detected (Not Detect) St Y.enterocolitica PCR Not detected (Not Detect) Stool Vibrio (PCR) Not detected (Not Detect) Stl Vibrio cholerae PCR Not detected (Not Detect) Stl Enteroaggr Ecoli PCR Not detected (Not Detect) Stl Norovirus GI/GII PCR Not detected (Not Detect) Chlamy pneumoniae PCR (Not Detect) Adenovirus (PCR) (Not Detect) B. pertussis DNA (PCR) (Not Detecte) B.parapertussis DNA PCR (Not Detecte) Campylobacter (PCR) Not detected (Not Detect) C. difficile Tox (PCR) Not detected (Not Detect) Coronavirus OC43 (PCR) (Not Detect) Coronavirus HKU1 (PCR) (Not Detect) Coronavirus 229E (PCR) (Not Detect) SARS-CoV-2 (PCR) (Not Detecte) Coronavirus NL63 (PCR) (Not Detect) Human Metapneumovir PCR (Not Detect) Influenza Type A (PCR) (Not Detect) Influenza Type B (PCR) (Not Detect) M. pneumoniae (PCR) (Not Detect) Parainfluenza 1 (PCR) (Not Detect) Parainfluenza 2 (PCR) (Not Detect) Parainfluenza 3 (PCR) (Not Detect) Parainfluenza 4 (PCR) (Not Detect) RSV (PCR) (Not Detect) Entero/Rhino (PCR) (Not Detect) Salmonella (PCR) Not detected (Not Detect) Imaging Data CT scan - abdomen/pelvis: Radiologist's Impression: [place] [address] CT Scan Report Signed Patient: Hattie Perea MR#: [id number] : 1935 Acct:[id number] Age/Sex: 86 / F Date of Service: 06/25/22 Loc: ED Accession Number: [id number] ?? Procedure: CT abdomen pelvis w con Ordering Provider: Jordan Castro MD PROCEDURE:? CT ABDOMEN PELVIS W CON ? INDICATIONS:? IV contrast only/abdominal pain/diarrhea ? TECHNIQUE:? After the administration of intravenous contrast, axial sections acquired from the lung bases to the pubic symphysis.? Coronal and sagittal reformats were performed.? For radiation dose reduction, the following was used:? automated exposure control, adjustment of mA and/or kV according to patient size.? ? COMPARISON:? None. ? FINDINGS:? Image quality:? Excellent.? ? Lung bases:? Tree-in-bud nodularity in both lung bases extending superiorly above the field of view. ? ABDOMEN: Liver:? No acute finding.? Mild hepatic steatosis suspected. Gallbladder:? Normal. Biliary ducts:? Nondilated. Pancreas:? No peripancreatic inflammatory changes or pancreatic ductal dilatation. Spleen:? Normal size and appearance. Adrenal Glands:? No adrenal gland nodule or mass. Kidneys and Ureters:? No urinary tract calculus or hydroureteronephrosis. ? Stomach and Bowel:? Liquid stool in the distal colon.? No abnormally dilated or thick abnormally thickened loop of bowel.? No pericolonic or mesenteric inflammatory changes. Peritoneum:? No abnormal intraperitoneal fluid.? No free air.? ? Abdominal Nodes:? No retroperitoneal or mesenteric adenopathy by size criteria.? Vessels:? Aorta and inferior vena cava are normal in size.? ? PELVIS: Pelvic Organs:? Unremarkable.? ? Bladder:? Unremarkable.? ? Pelvic Nodes: No enlarged lymph nodes.? Miscellaneous: No hernias are seen. ? ? ? Bones:? No acute or suspicious osseous lesion. ? ? IMPRESSION: ? Liquid stool in the colon is suggestive of diarrheal illness. ? Partially visualized tree-in-bud nodularity in the lung bases, likely infectious. ? No acute finding otherwise.? ? Dictated by: Erasmo Campbell M.D. on 06/25/2022 at 8:38 ? ? Approved by: Erasmo Campbell M.D. on 06/25/2022 at 8:40 ? MDM Narrative Medical decision making narrative: Patient states was doing well last night. Until 1:00 a.m. she had watery diarrhea. Has multiple episodes since then. She states she is taken Imodium in the past with good relief. Denies any abdominal pain but does have bloating. No bloody stools. Gloria WEBB. she states she is watery stools every 10 minutes since being here. Appropriate for discharge home. Diarrhea has nearly resolved. Return precautions reviewed with patient. Reviewed blood work and CT scan imaging and GI panel with Infectious Disease. Not HUS. Platelets likely not related to patient's diarrhea or E coli. Patient desires discharge home. She does have a family doctor to follow up with. No antibiotics are prescriptions required at this time. IV fluids were provided here. Discharge Plan Departure Patient Disposition: Home Clinical Impression: Traveler's diarrhea, E. coli colitis Instructions: DI for Escherichia Coli (E. Coli) Infection, DI for Diarrhea and Traveler's Diarrhea -- Adult Activity Restrictions/Additional Instructions: Keep well hydrated. Please call your family doctor today to make appointment to be re-evaluated within the next few days for re-evaluation of your blood work that we did today. Return if worsening questions or concerns or for any rectal bleeding. Return if any abdominal pain or worsening symptoms. Prescriptions: No Action tramadol 50 mg tablet 50 mg PO Q6H PRN (Reason: pain) Qty: 7 0RF lidocaine 5 % adhesive patch,medicated 1 patch TOP DAILY PRN (Reason: pain) Qty: 15 0RF Rx Instructions: leave on most painful area for up to 12 hrs prednisone 20 mg tablet 40 mg PO DAILY Qty: 10 0RF Referrals: Lizett Hart MD [Primary Care Provider] - Visit Report Forms: Patient Portal/API
[2022-06-25 06:01] VITALS: BP 125/58; PULSE 67; RESP 26; TEMP 36.6; O2SAT 98; BMI 25.0
[2022-06-25 06:51] LABS: Add Manual Diff / Slide Review NO; Basophils Absolute Auto 0 /uL (0-100); Basophils Percent Auto 0.2 % (0-2); Eosinophils Absolute Auto 0 /uL (0-450); Eosinophils Percent Auto 0.4 % (2-4); Hematocrit 35.1 % (36-46); Hemoglobin 12.4 g/dL (12.0-16.0); Lymphocytes Absolute Auto 200 /uL (1100-4500); Lymphocytes Percent Auto 4.2 % (25-40); Mean Corpuscular HGB Conc 35.5 % (30-36); Mean Corpuscular Hemoglobin 34.5 PG (26-34); Mean Corpuscular Volume 97.2 fL (80-100); Monocytes Absolute Auto 400 /uL (0-900); Monocytes Percent Auto 7.1 % (3-14); Neutrophils Absolute Auto 5000 /uL (1500-7000); Neutrophils Percent Auto 88.1 % (50-75); Platelet Count 76 X10^3/uL (150-400); Red Blood Cell Count 3.61 X10^6/uL (4.0-5.2); Red Cell Distribution Width 13.3 % (11.6-14.8); White Blood Cell Count 5.7 X10^3/uL (4.5-11.0)
[2022-06-25 07:06] LABS: Alanine Aminotransferase 24 IU/L (<35); Albumin 4.2 g/dL (3.5-5.0); Albumin Globulin Ratio 1.5 (1.0-2.8); Alkaline Phosphatase 35 U/L (38-126); Aspartate Aminotransferase 30 IU/L (14-36); Bilirubin Total 0.4 mg/dL (0.2-1.3); Blood Urea Nitrogen 23 mg/dL (7-17); Carbon Dioxide 22 mmol/L (22-32); Chloride 109 mmol/L (98-107); Estimated Glomerular Filt Rate > 60 mL/min (>60); Globulin 2.8 g/dL (1.7-4.1); Glucose 114 mg/dL (80-110); Magnesium 1.8 mg/dL (1.6-2.3); Potassium 3.7 mmol/L (3.4-5.1); Sodium 140 mmol/L (137-145)
[2022-06-25 07:09] LABS: HEMOLYSIS 63 (0-50)
[2022-06-25 07:28] LABS: Adenovirus Not Detected (Not Detect); B. parapertussis Not Detected (Not Detecte); Bordetella pertussis Not Detected (Not Detecte); Chlamydophila pneumoniae Not Detected (Not Detect); Coronavirus 229E Not Detected (Not Detect); Coronavirus HKU1 Not Detected (Not Detect); Coronavirus NL 63 Not Detected (Not Detect); Coronavirus OC43 Not Detected (Not Detect); Human Metapneumovirus Not Detected (Not Detect); Human Rhinovirus/Enterovirus Not Detected (Not Detect); Influenza A Not Detected (Not Detect); Influenza B Not Detected (Not Detect); Mycoplasma pneumoniae Not Detected (Not Detect); Parainfluenza Virus 1 Not Detected (Not Detect); Parainfluenza Virus 2 Not Detected (Not Detect); Parainfluenza Virus 3 Not Detected (Not Detect); Parainfluenza Virus 4 Not Detected (Not Detect); Respiratory Syncytial Virus Not Detected (Not Detect); SARS- CoV-2 Not Detected (Not Detecte)
--- NOTE | 2022-06-25 08:45 | DI.CT.S_ITS ---
PROCEDURE: CT ABDOMEN PELVIS W CON INDICATIONS: IV contrast only/abdominal pain/diarrhea TECHNIQUE: After the administration of intravenous contrast, axial sections acquired from the lung bases to the pubic symphysis. Coronal and sagittal reformats were performed. For radiation dose reduction, the following was used: automated exposure control, adjustment of mA and/or kV according to patient size. COMPARISON: None. FINDINGS: Image quality: Excellent. Lung bases: Tree-in-bud nodularity in both lung bases extending superiorly above the field of view. ABDOMEN: Liver: No acute finding. Mild hepatic steatosis suspected. Gallbladder: Normal. Biliary ducts: Nondilated. Pancreas: No peripancreatic inflammatory changes or pancreatic ductal dilatation. Spleen: Normal size and appearance. Adrenal Glands: No adrenal gland nodule or mass. Kidneys and Ureters: No urinary tract calculus or hydroureteronephrosis. Stomach and Bowel: Liquid stool in the distal colon. No abnormally dilated or thick abnormally thickened loop of bowel. No pericolonic or mesenteric inflammatory changes. Peritoneum: No abnormal intraperitoneal fluid. No free air. Abdominal Nodes: No retroperitoneal or mesenteric adenopathy by size criteria. Vessels: Aorta and inferior vena cava are normal in size. PELVIS: Pelvic Organs: Unremarkable. Bladder: Unremarkable. Pelvic Nodes: No enlarged lymph nodes. Miscellaneous: No hernias are seen. Bones: No acute or suspicious osseous lesion. IMPRESSION: Liquid stool in the colon is suggestive of diarrheal illness. Partially visualized tree-in-bud nodularity in the lung bases, likely infectious. No acute finding otherwise. Dictated by: Erasmo Campbell M.D. on 06/25/2022 at 8:38 Approved by: Erasmo Campbell M.D. on 06/25/2022 at 8:40
--- NOTE | 2022-06-25 09:33 | PC.NURSE ---
complete bed change, teresa care for copius liquid stool. Pt is a/o x 4, pink/warm/dry. No acute distress.
[2022-06-25 10:58] VITALS: BP 135/60; PULSE 72; TEMP 36.9; O2SAT 98
[2022-06-25 11:11] LABS: Adenovirus F 40/41 Not Detected (Not Detect); Astrovirus Not Detected (Not Detect); Campylobacter Not Detected (Not Detect); Clostridium difficile toxin AB Not Detected (Not Detect); Cryptosporidium Not Detected (Not Detect); Cyclospora cayetanensis Not Detected (Not Detect); Entamoeba histolytica Not Detected (Not Detect); Enteroaggregative E.coli Not Detected (Not Detect); Enteropathogenic E.coli Detected (Not Detect); Enterotoxigenic E.coli It/st Not Detected (Not Detect); Giardia lamblia Not Detected (Not Detect); Norovirus GI/GII Not Detected (Not Detect); Plesiomonsa shigelloides Not Detected (Not Detect); Rotavirus A Not Detected (Not Detect); Salmonella Not Detected (Not Detect); Sapovirus Not Detected (Not Detect); Shiga-like toxin-prod E.coli Not Detected (Not Detect); Shigella/Enteroinvasive E.coli Not Detected (Not Detect); Vibrio Not Detected (Not Detect); Vibrio cholerae Not Detected (Not Detect); Yersinia enterocolitica Not Detected (Not Detect)
== END 2022-06-25 13:04 | disposition home or self-care (01) ==
PROVIDERS: Emergency Medicine; Emergency Provider Emergency Medicine; PCP Internal Medicine
DX: A04.4 Other intestinal Escherichia coli infections (principal)
CPT/HCPCS: 36415; 74177; 80053; 83735; 85025; 87507; 87633; 99283; Q9967

== ENCOUNTER 2022-09-13 12:27 | Emergency (ER) | payer MEDICARE, SELFPAY ==
[2022-09-13] VITALS (13 sets, daily range): BP systolic 128–179; BP diastolic 63–89; PULSE 55–81; RESP 18–33; TEMP 36.6; O2SAT 97–100; BMI 22.8
--- NOTE | 2022-09-13 12:47 | DI.CT.S_ITS ---
PROCEDURE: CT HEAD/BRAIN WO CON INDICATIONS: h/o TIA, vertigo x 2 days TECHNIQUE: Noncontrast 4.5 mm thick angled axial sections acquired from the foramen magnum to the vertex, with coronal and sagittal reformats. For radiation dose reduction, the following was used: automated exposure control, adjustment of mA and/or kV according to patient size. COMPARISON: [facility], CT, HEAD WITHOUT CONTRAST, 11/07/2014, 15:03. FINDINGS: Image quality: Excellent. CSF spaces: Basal cisterns are patent. No extra-axial fluid collections. Ventricles are normal in size and shape. Brain: No midline shift. No intracranial masses or hemorrhage. Danielle-white matter interface is normal. Moderate cerebral and cerebellar volume loss with multifocal white matter chronic ischemic change noted. Atherosclerotic calcification noted associated with cavernous segments of both internal carotid arteries. Skull and face: Calvarium and visualized facial bones are intact, without suspicious lesions. Sinuses: Visualized sinuses and mastoids are clear. IMPRESSION: Moderate atrophy and chronic ischemic change without intracranial hemorrhage or mass effect Approved by: Hill Cuellar M.D. on 09/13/2022 at 12:45
[2022-09-13 12:52] LABS: Add Manual Diff / Slide Review NO; Basophils Absolute Auto 0 /uL (0-100); Basophils Percent Auto 0.4 % (0-2); Eosinophils Absolute Auto 100 /uL (0-450); Eosinophils Percent Auto 1.3 % (2-4); Hematocrit 36.2 % (36-46); Lymphocytes Absolute Auto 1800 /uL (1100-4500); Lymphocytes Percent Auto 29.3 % (25-40); Mean Corpuscular HGB Conc 33.2 % (30-36); Mean Corpuscular Hemoglobin 29.9 PG (26-34); Mean Corpuscular Volume 90.1 fL (80-100); Monocytes Absolute Auto 400 /uL (0-900); Monocytes Percent Auto 7.3 % (3-14); Neutrophils Absolute Auto 3700 /uL (1500-7000); Neutrophils Percent Auto 61.7 % (50-75); Platelet Count 271 X10^3/uL (150-400); Red Blood Cell Count 4.01 X10^6/uL (4.0-5.2); Red Cell Distribution Width 12.9 % (11.6-14.8)
[2022-09-13 12:58] LABS: Prothrombin Time 11.2 SECONDS (10.1-12.7)
[2022-09-13 13:01] LABS: PTT Partial Thromboplastin Tim 29 SECONDS (26-36)
[2022-09-13 16:41] LABS: Alanine Aminotransferase 22 IU/L (<35); Albumin 4.6 g/dL (3.5-5.0); Albumin Globulin Ratio 1.4 (1.0-2.8); Alkaline Phosphatase 49 U/L (38-126); Aspartate Aminotransferase 35 IU/L (14-36); BUN Creatinine Ratio 30.2 (6-22); Bilirubin Total 0.5 mg/dL (0.2-1.3); Blood Urea Nitrogen 26 mg/dL (7-17); Calcium 9.9 mg/dL (8.4-10.2); Carbon Dioxide 29 mmol/L (22-32); Chloride 100 mmol/L (98-107); Estimated Glomerular Filt Rate > 60 mL/min (>60); Globulin 3.4 g/dL (1.7-4.1); Glucose 100 mg/dL (80-110); HEMOLYSIS < 15 (0-50); Potassium 3.7 mmol/L (3.4-5.1); Sodium 138 mmol/L (137-145)
--- NOTE | 2022-09-13 18:12 | ED_ITS ---
HPI - Neuro Symptoms/Deficit General Chief Complaint: Neuro Symptoms/Deficit Stated Complaint: Dizzy, says stroke. hx TIA Time Seen by Provider: 09/13/22 18:06 Source: patient Mode of arrival: Family Vehicle History of Present Illness HPI Narrative: 87F nonsmoker with history of TIA presents with a chief complaint of reproducible vertiginous type dizziness each of the past 2 mornings upon waking that improves over the course of the day. She denies any headache or blurred vision. She denies any facial numbness, tingling, weakness or trouble with speech. She denies any extremity numbness, tingling or weakness. She denies any recent trauma, head injury or fever. She has no neck pain. She denies any runny nose, sore throat or cough. She is had no recent travel. She denies chest pain or shortness of breath. She states that she is fine throughout the course of the day and then goes asleep upon waking feels as if the room is spinning for a bit. She states it seems to be worse when she turns her head left Related Data Previous Rx's Medication Instructions Recorded lidocaine 5 % topical patch 1 patch topical DAILY PRN pain #15 07/21/19 ea prednisone 20 mg tablet 40 mg PO DAILY #10 tabs 07/21/19 tramadol 50 mg tablet 50 mg PO Q6H PRN pain #7 tabs 07/21/19 cephalexin 500 mg capsule 500 mg PO BID #10 caps 09/13/22 meclizine 25 mg tablet 25 mg PO BID-TID PRN dizziness #14 09/13/22 tabs Allergies Allergy/AdvReac Type Severity Reaction Status Date / Time Sulfa (Sulfonamide Allergy Unknown Verified 07/21/19 12:04 Antibiotics) Review of Systems Review of Systems Narrative: GENERAL: Denies chills, fatigue, malaise, fever, sweats. HEENT: See HPI RESPIRATORY: Denies dyspnea, cough, wheezing, hemoptysis, sputum. CARDIOVASCULAR: Denies chest pain, palpitations, orthopnea, edema, GASTROINTESTINAL: Denies nausea, vomiting, abdominal pain, diarrhea, constipation, melena. : Denies dysuria, frequency, incontinence, hematuria, urinary retention. MUSCULOSKELETAL: denies weakness, joint pain, or bony pain SKIN: Denies rash, skin lesions, or other NEUROLOGIC: See HPI PSYCHIATRIC: No concerning psychosocial issues. 12 point review of systems is negative except for those stated above Patient History Social History Smoking Status: Unknown if ever smoked Smoking Status: Unknown if ever smoked alcohol intake frequency: 0-2 drinks per day Substance Use Type: does not use Exam Narrative Exam Narrative: GENERAL: 87 [] year old patient appears stated age. Well-developed patient, in mild distress. Anxious HEAD: Atraumatic. Normocephalic. EYES: Pupils equal round and reactive. Extraocular motions intact. No scleral icterus. No injection or drainage. ENT: Nose without bleeding, purulent drainage. Throat without erythema, tonsillar hypertrophy or exudate. Airway patent. No reproducible nystagmus though patient does report worsening symptoms when turning her head left NECK: Trachea midline. Non tender CARDIOVASCULAR: Regular rate and rhythm without murmurs, gallops, or rubs. RESPIRATORY: Clear to auscultation. Breath sounds equal bilaterally. No wheezes, rales, or rhonchi. GASTROINTESTINAL: Abdomen soft, non-tender, nondistended. EXTREMITIES: No edema or joint tenderness. BACK: Nontender without deformity or crepitance. No flank tenderness. NEURO: AOx3. SKIN: No rash or erythema of visible areas NIH Stroke Scale 1a. LOC: Patient is alert and keenly responsive (0) 1b. LOC Questions: Patient answers both LOC questions accurately (0) 1c. LOC Commands: Patient performs both tasks correctly (0) 2. Best Gaze: Normal (0) 3. Visual: No visual loss (0) 4. Facial palsy: Normal symmetrical movements (0) 5. Motor arm: No drift (0) 6. Motor leg: No drift (0) 7. Limb ataxia: Absent (0) 8. Sensory: Normal (0) 9. Best language: No aphasia; normal (0) 10. Dysarthria: Normal (0) 11. Extinction and inattention: No abnormality (0) NIHSS: 0 Initial Vital Signs Initial Vital Signs: Vital Signs Temperature 97.8 F 09/13/22 12:38 Pulse Rate 81 09/13/22 12:38 Respiratory Rate 19 09/13/22 12:38 Blood Pressure 128/87 09/13/22 12:38 Pulse Oximetry 100 09/13/22 12:38 Oxygen Delivery Method 09/13/22 12:38 Course Orders Ordered: Discontinued Medications Cefazolin Sodium (Cephalexin 250 Mg Cap Prepack) 1 bottle MISC SEEINSTR ONE Stop: 09/13/22 18:34 Last Admin: 09/13/22 18:40 Dose: 1 bottle Documented By: SIMEON Meclizine HCl (Meclizine Hcl 12.5 Mg Tablet) 25 mg PO NOW ONE Stop: 09/13/22 18:34 Last Admin: 09/13/22 18:41 Dose: 25 mg Documented By: SIMEON Vital Signs Vital signs: Vital Signs - 8 hr 09/13/22 12:38 09/13/22 14:05 09/13/22 14:07 Temperature 97.8 F Pulse Rate 81 62 60 Respiratory Rate 19 18 Blood Pressure 128/87 Pulse Oximetry 100 97 99 Oxygen Delivery Method Room Air 09/13/22 14:07 09/13/22 14:30 09/13/22 14:30 Temperature Pulse Rate 62 Respiratory Rate Blood Pressure 179/81 H 174/84 H Pulse Oximetry 100 Oxygen Delivery Method 09/13/22 15:00 09/13/22 15:00 09/13/22 15:30 Temperature Pulse Rate 55 L Respiratory Rate 18 Blood Pressure 139/80 145/63 H Pulse Oximetry 100 Oxygen Delivery Method 09/13/22 15:30 09/13/22 15:34 09/13/22 15:34 Temperature Pulse Rate 57 L 57 L Respiratory Rate 22 33 H Blood Pressure 142/65 H Pulse Oximetry 100 100 Oxygen Delivery Method 09/13/22 16:00 09/13/22 16:00 09/13/22 16:30 Temperature Pulse Rate 62 63 Respiratory Rate 32 H 31 H Blood Pressure 167/78 H Pulse Oximetry 100 98 Oxygen Delivery Method 09/13/22 17:00 09/13/22 17:00 09/13/22 17:30 Temperature Pulse Rate 61 Respiratory Rate 27 H Blood Pressure 170/89 H 169/79 H Pulse Oximetry 100 Oxygen Delivery Method 09/13/22 17:30 09/13/22 18:00 09/13/22 18:00 Temperature Pulse Rate 61 62 Respiratory Rate 19 25 H Blood Pressure 168/77 H Pulse Oximetry 100 99 Oxygen Delivery Method MDM - Neuro Symptoms/Deficit Lab Data 09/13/22 12:43 09/13/22 12:43 Labs: Lab Results 09/13/22 09/13/2223 Range/Units 12:43 12:43 12:43 WBC 6.0 (4.5-11.0) X10^3/uL RBC 4.01 (4.0-5.2) X10^6/uL Hgb 12.0 (12.0-16.0) g/dL Hct 36.2 (36-46) % MCV 90.1 (80-100) fL MCH 29.9 (26-34) PG MCHC 33.2 (30-36) % RDW 12.9 (11.6-14.8) % Plt Count 271 (150-400) X10^3/uL Neut % (Auto) 61.7 (50-75) % Lymph % (Auto) 29.3 (25-40) % Hernando % (Auto) 7.3 (3-14) % Eos % (Auto) 1.3 L (2-4) % Baso % (Auto) 0.4 (0-2) % Neut # (Auto) 3700 (0715-7643) /uL Lymph # (Auto) 1800 (4855-2420) /uL Hernando # (Auto) 400 (0-900) /uL Eos # (Auto) 100 (0-450) /uL Baso # (Auto) 0 (0-100) /uL PT 11.2 (10.1-12.7) SECONDS INR 1.0 (0.9-1.3) APTT 29 (26-36) SECONDS Sodium 138 (137-145) mmol/L Potassium 3.7 (3.4-5.1) mmol/L Chloride 100 (98-107) mmol/L Carbon Dioxide 29 (22-32) mmol/L BUN 26 H (7-17) mg/dL Creatinine 0.86 (0.52-1.04) mg/dL Estimated GFR > 60 (>60) mL/min BUN/Creatinine Ratio 30.2 H (6-22) Glucose 100 (80-110) mg/dL Calcium 9.9 (8.4-10.2) mg/dL Total Bilirubin 0.5 (0.2-1.3) mg/dL AST 35 (14-36) IU/L ALT 22 (<35) IU/L Alkaline Phosphatase 49 (38-126) U/L Total Protein 8.0 (6.3-8.2) g/dL Albumin 4.6 (3.5-5.0) g/dL Globulin 3.4 (1.7-4.1) g/dL Albumin/Globulin Ratio 1.4 (1.0-2.8) Urine RBC (0-5/HPF) Urine WBC (0-5/HPF) Ur Transition Epith Cell (0-5/HPF) Urine Bacteria (None) Ur Culture Indicated? 09/13/22 Range/Units 18:30 WBC (4.5-11.0) X10^3/uL RBC (4.0-5.2) X10^6/uL Hgb (12.0-16.0) g/dL Hct (36-46) % MCV (80-100) fL MCH (26-34) PG MCHC (30-36) % RDW (11.6-14.8) % Plt Count (150-400) X10^3/uL Neut % (Auto) (50-75) % Lymph % (Auto) (25-40) % Hernando % (Auto) (3-14) % Eos % (Auto) (2-4) % Baso % (Auto) (0-2) % Neut # (Auto) (1156-4963) /uL Lymph # (Auto) (3107-2212) /uL Hernando # (Auto) (0-900) /uL Eos # (Auto) (0-450) /uL Baso # (Auto) (0-100) /uL PT (10.1-12.7) SECONDS INR (0.9-1.3) APTT (26-36) SECONDS Sodium (137-145) mmol/L Potassium (3.4-5.1) mmol/L Chloride (98-107) mmol/L Carbon Dioxide (22-32) mmol/L BUN (7-17) mg/dL Creatinine (0.52-1.04) mg/dL Estimated GFR (>60) mL/min BUN/Creatinine Ratio (6-22) Glucose (80-110) mg/dL Calcium (8.4-10.2) mg/dL Total Bilirubin (0.2-1.3) mg/dL AST (14-36) IU/L ALT (<35) IU/L Alkaline Phosphatase (38-126) U/L Total Protein (6.3-8.2) g/dL Albumin (3.5-5.0) g/dL Globulin (1.7-4.1) g/dL Albumin/Globulin Ratio (1.0-2.8) Urine RBC 0-1/hpf (0-5/HPF) Urine WBC 10-30/hpf H (0-5/HPF) Ur Transition Epith Cell 1-5/hpf (0-5/HPF) Urine Bacteria None seen (None) Ur Culture Indicated? Specimen cultured Point of Care Testing Glucose POC 93 Urine Dip Bedside Urine Glucose Negative Bedside Urine Bilirubin - Negative Bedside Urine Ketone - Negative Urine Specific [place] 1.015 Bedside Urine Occult Blood - Negative Bedside Urine pH 6.0 Bedside Urine Protein - Negative Bedside Urine Urobilinogen - Negative Bedside Urine Nitrite - Negative Bedside Urine Leukocytes ++ 125 Esterase MDM Narrative Medical decision making narrative: CC: 87-year-old female with reasonabley subtle dizziness Complicating co-morbidities: Age, hypertension, prior stroke Data collected from: Patient Medical records reviewed: Prior notes reviewed in our EMR Differential considered, but not limited to: TIA, peripheral Exam documented above, pertinent findings include: NIH stroke scale 0, no obviously reproducible nystagmus though she does become symptomatic moving her head [id number] Lab Test results independently reviewed as above. Pertinent findings: No significant abnormalities requiring a specific intervention Independently reviewed EKG as above Imaging studies independently reviewed: Imaging without any acute abnormality Scores Used: NIHSS Discussion: 87-year-old female with reassuring history and physical exam complains of reproducible vertiginous type dizziness for each of the last few mornings that gradually resolved over the course of the day. She is had some nasal congestion and upper respiratory symptoms leading to this. She is particularly concerned given her history of prior TIA. There is no blurring of vision, trouble with speech or extremity numbness, tingling or weakness. No trouble finding words. Imaging is reassuring, labs are unremarkable. She is found to have suggestion of UTI which seems at least on some level a likely contributor as well as some peripheral vertigo symptoms. She is been sent with prescriptions for antibiotics as well as meclizine and encouragement to follow up close with her primary care provider Disposition: see below, along with detailed discharge instructions that have been reviewed with patient as well as indications for ED re-evaluation and additional outpatient follow up Discharge Plan Departure Patient Disposition: Home Clinical Impression: Dizziness, Acute UTI Instructions: DI for Vertigo, DI for Urinary Tract Infection (UTI) Activity Restrictions/Additional Instructions: *You have been diagnosed with [dizziness, likely positional. Also evidence of UTI. As we discussed your history and physical exam, labs, EKG, and CT of the head are very reassuring ] *What to do: *Please continue to take your regular medications as directed. [x ] New medication prescriptions sent to your pharmacy: [[facility] ] [ ] New medication written as a paper prescription [ ] No new medications given *Please follow up with your primary care provider in 2-3 days, call for an appointment. Let them know you were seen in the Emergency Department and that we ask that you be seen in follow up. We will electronically transmit a record of today's note if your PCP is in our system *Return to Emergency Department if you should have any new, worsening or concerning symptoms, such as [fever greater than 101 F, shaking chills, worsening pain, persistent vomiting or other bothersome symptoms] Prescriptions: New meclizine 25 mg tablet 25 mg PO BID-TID PRN (Reason: dizziness) Qty: 14 0RF cephalexin 500 mg capsule 500 mg PO BID Qty: 10 0RF No Action tramadol 50 mg tablet 50 mg PO Q6H PRN (Reason: pain) Qty: 7 0RF lidocaine 5 % adhesive patch,medicated 1 patch TOP DAILY PRN (Reason: pain) Qty: 15 0RF Rx Instructions: leave on most painful area for up to 12 hrs prednisone 20 mg tablet 40 mg PO DAILY Qty: 10 0RF Referrals: Lizett Hart MD [Primary Care Provider] - Stand Alone Forms: Patient Portal/API
[2022-09-13] MEDS: cephALEXin 250 MG CAP PREPACK 1 BOTTLE MISC (18:40)
[2022-09-13] MEDS: MECLIZINE HCL 12.5 MG TABLET 25 MG PO (18:41)
[2022-09-13 19:06] LABS: RBC Urine 0-1/HPF (0-5/HPF); Transitional Epi Cells Urine 1-5/HPF (0-5/HPF); WBC Urine 10-30/HPF (0-5/HPF)
[2022-09-13 19:07] LABS: Bacteria Urine None Seen; Culture Indicated Urine Specimen Cultured
== END 2022-09-13 18:51 | disposition home or self-care (01) ==
PROVIDERS: Emergency Medicine; Emergency Provider Emergency Medicine; PCP Internal Medicine
DX: R42 Dizziness and giddiness (principal); N39.0 Urinary tract infection, site not specified; Z86.73 Personal history of transient ischemic attack (TIA), and cerebral infarction without residual deficits
CPT/HCPCS: 36415; 70450; 80053; 81003; 81015; 82962; 85025; 85610; 85730; 87086; 93005; 99284

== ENCOUNTER → 2023-05-14 12:11 | Outpatient (CLI) | payer OTHER, SELFPAY ==
--- NOTE | 2023-05-14 | DI.RAD.S_ITS ---
Bone Density Report Name: PATRICIA LEZAMA Age: 87 Sex: Female Ethnicity: White Date of : 1935 Indication: osteopenia; monitoring treatment; prior fracture; Referring Provider: PAMELA VAN Study: Bone densitometry was performed. Exam Date: May 14, 2023 Accession number: [id number] Bone Density: Region BMD T-score Z-score Classification AP Spine(L1-L4) 0.999 -0.4 2.4 Normal Femoral Neck (Right) 0.627 -2.0 0.5 Osteopenia Total Hip (Right) 0.690 -2.1 0.3 Osteopenia Total Forearm (Left) 0.371 -3.9 Osteoporosis 1/3 Forearm (Left) 0.469 -3.8 Osteoporosis UD Forearm (Left) 0.284 -2.7 Osteoporosis World Health Organization criteria for BMD impression classify patients as: Normal (T-score at or above -1.0), Osteopenia (T-score between -1.0 and -2.5), or Osteoporosis (T-score at or below -2.5). 10-year Fracture Risk: FRAX not reported because: Prior hip or vertebral fracture Treated for osteoporosis Previous Exams: -- Region Exam Age BMD T-score BMD Change BMD Change Date g/cm2 vs Baseline vs Previous -- AP Spine (L1-L4) 05/14/2023 87 0.999 -0.4 0.064 (6.8%)# 0.068 (7.3%)# 04/23/2021 85 0.931 -1.1 -0.005 (-0.5%) -0.005 (-0.5%) 01/12/2018 82 0.936 -1.0 Total Hip(Right) 05/14/2023 87 0.690 -2.1 -0.023 (-3.2%)# 0.014 (2.0%)# 04/23/2021 85 0.676 -2.2 -0.036 (-5.1%)* -0.036 (-5.1%)* 01/12/2018 82 0.712 -1.9 -- *Denotes significance at 95% confidence level, LSC for AP Spine = 0.022 g/cm2, LSC for Total Hip = 0.027 g/cm2 # Denotes dissimilar scan types or analysis methods Impression: The patient has low bone mass, based on the Right Total Hip T-score. The patient has risk factors, including: previous fracture. No significant bone loss was observed. Discussion: PATIENT UNDER TREATMENT WITH NO SIGNIFICANT BMD LOSS SINCE LAST EXAM. In an untreated patient, BMD typically declines with age. A lack of decline or gain is usually a sign that treatment is efficacious and fracture risk is reduced. It is important to ask patients whether they are taking their medications and to encourage continued and appropriate compliance with their osteoporosis therapies to reduce fracture risk. It is also important to review their risk factors and encourage appropriate calcium and vitamin D intakes, exercise, fall prevention and other lifestyle measures. Follow-Up: Consider a repeat BMD and Vertebral Fracture Assessment (VFA) exam in 2 years or sooner if medically necessary, to reassess this patient's status. Reported by: HIRAL BARNES M.D. on 05/14/2023 12:50:00 PM.
== END ==
PROVIDERS: PCP Internal Medicine; Referring Provider Internal Medicine; Visit Provider Internal Medicine
DX: M81.6 Localized osteoporosis [Lequesne] (principal)
CPT/HCPCS: 77080; 77081

== ENCOUNTER 2025-02-02 14:37 | Emergency (ER) | payer MEDICARE, SELFPAY ==
[2025-02-02 14:55] VITALS: BP 166/78; PULSE 89; RESP 16; TEMP 36.5; O2SAT 99; BMI 23.7
--- NOTE | 2025-02-02 14:59 | DI.RAD.S_ITS ---
PROCEDURE: XR CHEST 1V INDICATIONS: coughing x 1 week/fever TECHNIQUE: One view of the chest was acquired. COMPARISON: None. FINDINGS: Surgical changes and devices: None. Lungs and pleura: Lungs are clear. No pleural effusions or pneumothorax. Mediastinum: Mediastinal contours appear normal. Heart size is normal. Bones and chest wall: No suspicious bony lesions. Overlying soft tissues appear unremarkable. IMPRESSION: No acute cardiopulmonary abnormality is seen. Dictated by: Anthony Velez M.D. on 02/02/2025 at 15:26 Approved by: Anthony Velez M.D. on 02/02/2025 at 15:27
[2025-02-02 16:02] LABS: Influenza A - CEPHEID Flu A NEGATIVE (NEGATIVE); Influenza B - CEPHEID Flu B NEGATIVE (NEGATIVE)
[2025-02-02 16:18] LABS: COVID-19 CEPHEID 4-PLEX PCR Negative (Negative)
--- NOTE | 2025-02-02 18:22 | ED.URI ---
HPI - URI/Sore Throat General Chief Complaint: Upper Respiratory Symptoms Stated Complaint: Sent from [facility] Possible flu Time Seen by Provider: 02/02/25 18:00 History of Present Illness HPI Narrative: 89-year-old female history of hypertension presents with nonproductive nonbloody cough along with fever chills body aches since last week with negative COVID test but still symptomatic at this time. No sick contacts that she is aware of and denies chest pain ,shortness of breath, dyspnea on exertion, leg pain or worsening leg swelling. Other than what is stated 14 point review of system is negative. Related Data Home Medications ?Medication ?Instructions ?Recorded ?Confirmed amlodipine 5 mg tablet 5 mg PO DAILY 01/30/25 01/30/25 calcium 600 mg (as tab PO 01/30/25 01/30/25 carbonate)-vitamin D3 10 mcg (400 unit) tablet (Calcium with Vitamin D) cartilage 40 mg-collagen II 10 tab PO 01/30/25 01/30/25 mg-boron 5 mg-hyaluronate 3.3 mg tablet ([employer]) clopidogrel 75 mg tablet mg PO 01/30/25 01/30/25 cyanocobalamin (vitamin B-12) 250 mcg PO 01/30/25 01/30/25 mcg tablet (Vitamin B-12) hydrochlorothiazide 12.5 mg tablet mg PO 01/30/25 01/30/25 losartan 100 mg tablet 100 mg PO DAILY 01/30/25 01/30/25 metoprolol succinate 25 mg 25 mg PO DAILY 01/30/25 01/30/25 tablet,extended release 24 hr rosuvastatin 40 mg tablet mg PO 01/30/25 01/30/25 Previous Rx's ?Medication ?Instructions ?Recorded amoxicillin 875 mg-potassium 1 tab PO BID #14 tabs 02/02/25 clavulanate 125 mg tablet azithromycin 250 mg tablet 250 mg PO DAILY 4 days #4 tabs 02/02/25 Allergies Allergy/AdvReac Type Severity Reaction Status Date / Time Sulfa (Sulfonamide Allergy Unknown Verified 01/30/25 14:45 Antibiotics) naproxen AdvReac Mild GI Upset Verified 01/30/25 14:46 Review of Systems Review of Systems ROS Unobtainable: All systems reviewed & are unremarkable except as noted in HPI and below Patient History Medical History (Updated 02/02/25 @ 18:32 by Brock Allen DO) Primary osteoarthritis of right knee alcohol intake frequency: 0-2 drinks per day Exam Narrative Exam Narrative: GENERAL: [89] year old patient appears stated age. Well-developed patient, in mild distress. HEAD: Atraumatic. Normocephalic. EYES: Pupils equal round and reactive. Extraocular motions intact. No scleral icterus. No injection or drainage. ENT: Nose without bleeding, purulent drainage. Throat without erythema, tonsillar hypertrophy or exudate. Airway patent. NECK: Trachea midline. Non tender CARDIOVASCULAR: Regular rate and rhythm without murmurs, gallops, or rubs. RESPIRATORY: Bilateral crackles at the base GASTROINTESTINAL: Abdomen soft, non-tender, nondistended. EXTREMITIES: No edema or joint tenderness. BACK: Nontender without deformity or crepitance. No flank tenderness. NEURO: AOx3. SKIN: No rash or erythema of visible areas Initial Vital Signs Initial Vital Signs: Vital Signs Temperature 97.7 F 02/02/25 14:55 Pulse Rate 89 02/02/25 14:55 Respiratory Rate 16 02/02/25 14:55 Blood Pressure 166/78 H 02/02/25 14:55 Pulse Oximetry 99 02/02/25 14:55 Oxygen Delivery Method Room Air 02/02/25 14:55 Course Orders Ordered: ED Orders 02/02/25 14:59 XR chest 1V Stat 02/02/25 15:00 Covid-19 + FLU A/B + RSV - PCR Stat Vital Signs Vital signs: Vital Signs - 8 hr 02/02/25 14:55 Temperature 97.7 F Pulse Rate 89 Respiratory Rate 16 Blood Pressure 166/78 H Pulse Oximetry 99 Oxygen Delivery Method Room Air MDM - URI/Sore Throat Lab Data Labs: Lab Results 02/02/25 Range/Units 15:00 SARS-CoV-2 (PCR) Negative (Negative) Influenza A (RT-PCR) Flu a negative (NEGATIVE) Influenza B (RT-PCR) Flu b negative (NEGATIVE) RSV (PCR) Negative (Negative) Imaging Data Chest x-ray: Radiologist's Impression: [address] [address] XRay Report Signed Patient: Hattie Perea MR#: [id number] : 1935 Acct:[id number] Age/Sex: 89 / F Date of Service: 02/02/25 Loc: ED Accession Number: [id number] Procedure: XR chest 1V Ordering Provider: Abdirizak Miguel D.O. PROCEDURE: XR CHEST 1V INDICATIONS: coughing x 1 week/fever TECHNIQUE: One view of the chest was acquired. COMPARISON: None. FINDINGS: Surgical changes and devices: None. Lungs and pleura: Lungs are clear. No pleural effusions or pneumothorax. Mediastinum: Mediastinal contours appear normal. Heart size is normal. Bones and chest wall: No suspicious bony lesions. Overlying soft tissues appear unremarkable. IMPRESSION: No acute cardiopulmonary abnormality is seen. MDM Narrative Medical decision making narrative: All lab work, vital signs, nurse triage note, medication list, previous ER visits, and all imaging studies reviewed. Chest x-ray did not show any acute process. Patient given Augmentin and Zithromax here and DC home on same antibiotic. Differential diagnosis COVID flu RSV and pneumonia. Discharge Plan Departure Patient Disposition: Home Clinical Impression: Pneumonia Qualifiers: Pneumonia type: due to Pneumococcus Laterality: left Lung location: lower lobe of lung Qualified Code(s): J13 - Pneumonia due to Streptococcus pneumoniae Instructions: DI for Pneumonia -- Adult Activity Restrictions/Additional Instructions: Return with new or worsening symptoms. Take your medicines as directed. Keep hydrated. Follow up PCP in 1-2 weeks if no improvement in symptoms. Prescriptions: New amoxicillin-pot clavulanate 875-125 mg tablet 1 tab PO BID Qty: 14 0RF azithromycin 250 mg tablet 250 mg PO DAILY 4 Days Qty: 4 0RF Rx Instructions: start on day 2 of therapy No Action clopidogrel 75 mg tablet PO cyanocobalamin (vitamin B-12) [Vitamin B-12] 250 mcg tablet PO amlodipine 5 mg tablet 5 mg PO DAILY metoprolol succinate 25 mg tablet extended release 24 hr 25 mg PO DAILY losartan 100 mg tablet 100 mg PO DAILY rosuvastatin 40 mg tablet PO calcium carbonate-vitamin D3 [Calcium with Vitamin D] 600 mg-10 mcg (400 unit) tablet PO hydrochlorothiazide 12.5 mg tablet PO Joint Blekko 40-10-5-3.3 mg tablet PO Referrals: Lizett Hart MD [Primary Care Provider, Internal Medicine] Stand Alone Forms: Patient Portal/API
[2025-02-02] MEDS: AMOXICILLIN/CLAV 875/125 MG 1 TAB PO (18:33)
[2025-02-02] MEDS: AZITHROMYCIN 250 MG TABLET 500 MG PO (18:33)
[2025-02-02 18:49] VITALS: BP 181/76; PULSE 98; RESP 16; O2SAT 98
== END 2025-02-02 18:49 | disposition home or self-care (01) ==
PROVIDERS: Student in an Organized Health Care Education/Training Program; Emergency Provider Family Medicine; PCP Internal Medicine
DX: J13 Pneumonia due to Streptococcus pneumoniae (principal); R50.9 Fever, unspecified
CPT/HCPCS: 71045; 87637; 99283

== ENCOUNTER → 2025-02-19 11:10 | Outpatient (CLI) | payer MEDICARE, SELFPAY ==
--- NOTE | 2025-02-19 11:11 | DI.CT.S_ITS ---
PROCEDURE: CT CHEST WO CON INDICATIONS: f.u pneumonia TECHNIQUE: Noncontrast 5 mm thick sections acquired from the pulmonary apices to the posterior costophrenic angles. 1 mm lung window, 5 mm thick coronal and sagittal and 7 mm axial MIP reformats were then acquired. For radiation dose reduction, the following was used: automated exposure control, adjustment of mA and/or kV according to patient size. COMPARISON: [facility], CT, CT ANGIO CHEST PE PROTOCOL, 02/10/2025, 11:43. FINDINGS: Image quality: Diagnostic. Lower Neck: No enlarged lymph nodes. Thyroid: No thyroid nodules which require sonographic follow up, per consensus guidelines. Axillae: No enlarged lymph nodes. Chest Wall: Unremarkable. Bones: Unremarkable. Lungs and Pleura: There is a small right pleural effusion. There are again seen small airway densities in the right upper lobe with several distinct solid nodules measuring up to 8 mm. There is persistent advanced collapse of the right middle lobe, no definite obstructing endobronchial lesion seen. Small airway densities in both lower lobes also again seen. Heart: Heart size is normal. No pericardial effusion. Thoracic Vessels: The aorta and pulmonary arteries demonstrate normal size. Mediastinum and Parris: No enlarged lymph nodes. Esophagus: No wall thickening. No hiatal hernia. Upper Abdomen: Visualized upper abdomen solid organs and bowel loops appear normal. IMPRESSION: 1. Stable appearance of findings of bronchiolitis, with several distinct solid nodules in the right upper lobe, also most likely inflammatory. 2. 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 3. Persistent small right pleural effusion. Dictated by: Beto Cui M.D. on 02/19/2025 at 20:48 Approved by: Beto Cui M.D. on 02/19/2025 at 20:52
== END ==
LOC: CT 11:10
PROVIDERS: PCP Internal Medicine; Referring Provider Internal Medicine; Visit Provider Internal Medicine
DX: J18.9 Pneumonia, unspecified organism (principal); J90 Pleural effusion, not elsewhere classified; R91.8 Other nonspecific abnormal finding of lung field; J21.9 Acute bronchiolitis, unspecified
CPT/HCPCS: 71250